=== PATIENT | male | born 1955 | race African-American/Black ===

== ENCOUNTER 2018-01-19 16:39 | Emergency (ER) | payer BC ==
[2018-01-19 16:45] VITALS: BMI 45.6
--- NOTE | 2018-01-19 17:13 | DR.EXTPAIN ---
HPI - Time seen Time seen: 17:00 - PCP Primary Care Physician: VERONIKA FARLEY - HPI Comment HPI Comment: INCREASING PAIN SINCE. - Complaint/Symptoms Chief Complaint Doctor Comments: INJURY LT WRIST TODAY AT [facility]. Chief Complaint:: PT C/O I WAS SHOUTING AT [employer] AND I HIT MY LEFT WRISTS ON SOMETHING AND IT HURTS,, Self Treatment fo Chief Complaint: PT C/O PAIN WHEN HE MOVES HIS WRIST.. - Nurses notes reviewed Nurses Notes Review: Yes - Source History Provided: Patient - Mode of arrival Mode of Arrival: Ambulatory - Timing Onset of Chief Complaint: 01/19/18 - Context History of: Arthritis - Associated signs and symptoms Associated Signs and Symptoms: Pain, Swelling, Bruising PMH - PMH Past Medical History: Yes Past Medical History: Hypertension Past Surgical History: Yes Surgical History: Other Past Surgical History Comment: HERNIA REPAIR. - Family History History of Family Medical Conditions: No Family Medical History: Diabetes Mellitus, [place], Coronary Artery Disease, Heart Failure - Social History Does patient currently use any type of tobacco product: No Have you used tobacco products in the last 12 months: No Type of Tobacco Use: None Does any household member use tobacco: No Alcohol Use: None Do you use any recreational Drugs:: No Lives With: Family Lives Where: Home - infectious screening In the last 2 months have you had wt loss of >10#?: NO Have you had fever, night sweats or hemotysis?: No Have you traveled outside the country in the last 6 months?: No Isolation: Standard ROS - Review of Systems Constitutional: No Symptoms Reported Eyes: No Symptoms Reported ENTM: No Symptoms Reported Respiratoy: No Symptoms Reported Cardiovascular: No Symptoms Reported Gastrointestinal/Abdominal: No Symptoms Reported Genitourinary: No Symptoms Reported Neurological: No Symptoms Reported Musculoskeletal: Left, Wrist Integumentary: No Symptoms Reported Hematologic/Lymphatic: No Symptoms Reported Endocrine: No Symptoms Reported All Other Systems: Reviewed and Negative PE - Vital Signs Vitals: Temperature 97.0 F Pulse Rate 96 Respiratory Rate 18 Blood Pressure [Right Arm] 180/82 Blood Pressure 190/88 O2 Sat by Pulse Oximetry 97 - General Limitations: No Limitations - Head Head Exam: Normal Inspection - ENT ENT Exam: Normal External Ear Exam - Neck Neck Exam: Trachea Midline - Chest Chest Inspection: Normal Inspection - Respiratory Respiratory Exam: Normal Lung Sounds Bilat Respiratory Exam: Bilateral Clear to Auscultation - Cardiovascular Cardiovascular Exam: Regular Rate - Abdominal Exam Abdominal Exam: Normal Inspection - Extremities Extremities Exam: Tenderness (LT WRIST SWOLLEN, BRUISED AND TENDER. CRYSTAL WITH PAIN.) - Lower Extremities Neurovascular/Tendon Exam: Normal Capillary Refill Gait Exam: Observed and Normal - Back Back Exam: Normal Inspection - Neurological Neurological Exam: Alert, Oriented X3 - Psychiatric Psychiatric Exam: Normal Affect, Normal Mood - Skin Skin Exam: Erythema MDM - Differential Diagnosis Differential Diagnosis: Contusion, Fracture, Sprain (LT WRIST.) Course - Treatment Treatment: SEE ORDERS. LT WRIST SPLIND PLACE IN ED. - Education/Counseling Education/Counseling: Patient, Education Educated On: Diagnosis, Needs for Follow Up ROR - XRAY XRAY Interpreted by: Radiologist XRAY Findings: REPORT DISCUSS WITH PATIENT. - Diagnosis Discharge Problem: Wrist sprain Qualifiers: Encounter type: initial encounter Laterality: left Qualified Code(s): S63.502A - Unspecified sprain of left wrist, initial encounter - Discharge Plan Disposition: 01 HOME, SELF-CARE Condition: Stable - Follow ups/Referrals Follow ups/Referrals: Kenzie BANDA [Primary Care Provider] - 3 days - Instructions Instructions: Wrist Splint, Adult, [id number], Wrist Sprain, Adult Additional Instructions: RETURN TO ED IF WORSE.
--- NOTE | 2018-01-19 18:38 | RAD ---
HISTORY: Wrist pain with motion Study: 3 views of the left wrist. Comparison: None Findings: No acute fractures or dislocations. The carpal bones appear well aligned. The visualized portions of the distal radius and ulna are unremarkable. No significant soft tissue abnormality. IMPRESSION: 1. No acute abnormalities of the left wrist. Please note that nondisplaced scaphoid fractures can be radio-occult in the acute phase. If there is persistent pain in the anatomic snuffbox, recommend x -ray followup in 1-2 weeks. Reported By:
[2018-01-19 18:55] VITALS: BP 180/82
== END 2018-01-19 18:54 | disposition home or self-care (01) ==
LOC: ER 16:47
DX: S63.502A Unspecified sprain of left wrist, initial encounter (principal); X58.XXXA Exposure to other specified factors, initial encounter; Y92.22 Religious institution as the place of occurrence of the external cause
CPT/HCPCS: 73100; 99282

== ENCOUNTER 2021-10-20 08:39 | Observation (INO) ==
--- NOTE | 2021-10-20 09:19 | DR.CP ---
HPI Time Seen Time Seen by Provider: 10/20/21 09:05 PCP Primary Care Physician: JUDY Complaint Chief Complaint Doctor Comments: PATIENT COMPLAIN OF LEFT CHEST PAIN THAT OCCURS WHEN HE HAS VISIONS OF SEEING PEOPLE. HE HAS NOT BEEN SLEEPING WELL FOR THE PAST 3-4 DAYS. HE STATES THAT HIS PAIN IS LESS NOW IN THE ER. HE HAS BEEN SEEN BY PSYCHIATRY BEFORE FOR HALLUCINATING BUT STATES THAT THEY WERE NOT DOING ANY GOOD SO HE STOPPED SEEING THEM. HE WAA ON MEDICATIONS BUT STATES THAT THEY WERE NOT WORKING. Chief Complaint:: LAST NIGHT FAMILY STATES PT WAS SEENING PEOPLE THAT WEREN'T THERE AND THEN HE COMPLAINED OF CHEST PAIN ABOUT 430 THIS MORING. FAMILY STATES HE HAS BEEN SEEING THINGS THAT AREN'T THERE FOR SEVERAL EVENING AND NOT SLEEPING AT ALL.FAMILY CONCERNED HE IS SCARED WHEN SEEING IMAGES AND PATIENT STATES HE IS AND THEN BEGAN HIS CHEST PAIN. Self Treatment fo Chief Complaint: MORINING MEDICATIONS Source History Provided: Patient and Family Member Mode of Arrival Mode of Arrival: Ambulatory Timing Onset of Chief Complaint: 10/20/21 PMH PMH Past Medical History: Yes Past Medical History: Dyslipidemia and Hypertension Past Medical History Comment: LEFT WRIST FX Past Surgical History: Yes Surgical History: Other Family History History of Family Medical Conditions: Yes Family Medical History: Cancer and Hypertension Social History Does patient currently use any type of tobacco product: No Have you used tobacco products in the last 12 months: No Type of Tobacco Use: None Does any household member use tobacco: No Alcohol Use: None Do you use any recreational Drugs:: No Lives With: Spouse and Family Lives Where: Home Infectious screening In the last 2 months have you had wt loss of >10#?: NO Have you had fever, night sweats or hemotysis?: No Have you traveled outside the country in the last 6 months?: No Isolation: Standard ROS Review of Systems Constitutional: No Symptoms Reported Eyes: No Symptoms Reported and Other (LEGALLY BLIND) ENTM: No Symptoms Reported Respiratoy: No Symptoms Reported Cardiovascular: No Symptoms Reported and Chest Pain (CHEST PAIN AFTER JASON LUCINATIONS AND DELUSIONS) Gastrointestinal/Abdominal: No Symptoms Reported Genitourinary: No Symptoms Reported Neurological: No Symptoms Reported Musculoskeletal: No Symptoms Reported Integumentary: No Symptoms Reported Hematologic/Lymphatic: No Symptoms Reported Endocrine: No Symptoms Reported Psychiatric: No Symptoms Reported All Other Systems: Reviewed and Negative PE Vitals Vitals: Temperature 97.0 F Pulse Rate 96 Respiratory Rate 39 Blood Pressure [Right Arm] 132/80 Blood Pressure 116/82 O2 Sat by Pulse Oximetry 99 General Limitations: No Limitations General Appearance: Alert and In No Apparent Distress Head Head Exam: Normal Inspection Eyes Eye exam: Other (LEGALLY BLIND) ENT ENT Exam: Normal Exam Chest Chest Inspection: Normal Inspection Respiratory Respiratory Exam: Normal Lung Sounds Bilat Cardiovascular Cardiovascular Exam: Normal Rhythm and Tachycardia Pulse: Normal Edema: Normal Abdominal Exam Abdominal Exam: Normal Inspection, Normal Bowel Sounds and Soft Extremities Extremities Exam: Normal Inspection Back Back Exam: Normal Inspection Neurologic Neurological Exam: Alert and Oriented X3 Psychiatric Psychiatric Exam: Normal Affect and Normal Mood Skin Skin Exam: Warm, Dry, Intact and Normal Color MDM Additional Information Findings: TACHYCARDIA,CHEST PAIN,HALLUCINATIONS,PANIC ATTACK Differential Diagnosis Differential Diagnosis: Angina COURSE Treatment Treatment: PATIENT REMAINED STABLE DURING ER EVALUATION. HE WAS ORIGINALLY IN AFIB WITH RVR WITH RATE OF 139 BUT HE LATER CONVERTED TO NSR WITH RATE OF 90. PATIENT WAS GIVEN ASA 325 MG ORALLY IN ER AND STATED THAT HIS PAIN WAS ABOUT 2-3 UPON ARRIVAL TO ER. WE DID CARDIAC ENZYMES THAT WERE ELEVATED AT 96.6 (4-60). GOT THE RECORDS FROM [facility] IN [place] AND THE PATIEN HAD SIMULAR ELEVATION IN ENZYMES BUT HE HAD AFIB WITH RVR AND HAD ABLATION DONE ON 10-04-21. HE WAS SENT HOME ON AMIODORONE AND ELIQUIS AND WE WERE UNSURE IF HE HAS BEE COMPLIANT WITH HIS MEDICATIONS. CONTACT WAS MADE WITH HIS PCP DR ALMENDAREZ AND HE STATED TO REPEAT CARDIAC ENZYMES AND IF NO CHANGE OR IF DECREASED CAN REFER TO OBSERVATION FOR CHEST PAIN. WE REPEATED THE ENZYMES AND THEY WERE UNCHANGED SO HE WAS CALLED BACK WITH THE RESULTS AND HE ACCEPTED THE PATIENT TO OBSERVATION FOR CHEST PAIN. THE PATIENT WAS GIVEN XANAX 0.5 MG ORALLY IN THE ER AND HIS ANXIETY SUBSIDED. ROR Labs Reviewed Laboratory Results Reviewed?: Yes Result Diagrams: 10/21/21 04:50 10/21/21 04:50 Laboratory: WBC 6.0 X10^3/uL (3.6-10.0) 10/20/21 09:16 RBC 3.96 X10^6/uL (4.7-6.0) L 10/20/21 09:16 Hgb 11.8 g/dL (13.5-18.0) L 10/20/21 09:16 Hct 35.3 % (42.0-54.0) L 10/20/21 09:16 MCV 89.0 fL (80.0-100.0) 10/20/21 09:16 MCH 29.7 pg (27.0-34.0) 10/20/21 09:16 MCHC 33.4 g/dL (33.0-35.0) 10/20/21 09:16 RDW 15.5 % (11.6-16.5) 10/20/21 09:16 Plt Count 211 X10^3/uL (150.0-450.0) 10/20/21 09:16 MPV 9.1 fL (7.4-11.0) 10/20/21 09:16 Neut % (Auto) 68.3 % (42.0-75.0) 10/20/21 09:16 Lymph % (Auto) 21.7 % (21.0-51.0) 10/20/21 09:16 [place] % (Auto) 9.2 % (0.0-13.0) 10/20/21 09:16 Eos % (Auto) 0.4 % (0.9-2.9) L 10/20/21 09:16 Baso % (Auto) 0.4 % (0.2-1.0) 10/20/21 09:16 Neut # (Auto) 4.1 x10^3/uL (2.2-4.8) 10/20/21 09:16 Lymph # (Auto) 1.3 X10^3/uL (1.3-2.9) 10/20/21 09:16 [place] # (Auto) 0.6 x10^3/uL (0.3-0.8) 10/20/21 09:16 Eos # (Auto) 0.0 x10^3/uL (0.0-0.2) 10/20/21 09:16 Baso # (Auto) 0.0 X10^3/uL (0.0-0.1) 10/20/21 09:16 Absolute Nucleated RBC 0.0 /100WBC 10/20/21 09:16 PT 14.2 SECONDS (11.8-14.3) 10/20/21 09:16 INR Target Range - 10/20/21 09:16 INR 1.15 (0.8-1.3) 10/20/21 09:16 APTT 31.7 SECONDS (22.9-36.5) 10/20/21 09:16 PTT Comment - 10/20/21 09:16 Sodium 145 mmol/L (136-145) 10/20/21 09:16 Corrected Sodium TNP 10/20/21 09:16 Potassium 3.6 mmol/L (3.5-5.1) 10/20/21 09:16 Chloride 109 mmol/L (98-107) H 10/20/21 09:16 Carbon Dioxide 26.4 mmol/L (21-32) 10/20/21 09:16 BUN 18 mg/dL (7-18) 10/20/21 09:16 Creatinine 1.46 mg/dL (0.70-1.30) H 10/20/21 09:16 Est GFR (MDRD) Af Amer > 60 (>60) 10/20/21 09:16 Est GFR (MDRD) Non-Af 51 (>60) L 10/20/21 09:16 Glucose 109 mg/dL (65-99) H 10/20/21 09:16 Calcium 8.6 mg/dL (8.5-10.1) 10/20/21 09:16 Corrected Calcium TNP 10/20/21 09:16 Total Bilirubin 0.20 mg/dL (0.2-1.0) 10/20/21 09:16 AST 14 Units/L (15-37) L 10/20/21 09:16 ALT 26 Units/L (12-78) 10/20/21 09:16 Alkaline Phosphatase 57 Units/L (46-116) 10/20/21 09:16 Creatine Kinase 83 Units/L (39-308) 10/20/21 12:10 CK-MB (CK-2) 1.1 ng/mL (0-4.0) 10/20/21 12:10 CK/CKMB % Calc 1.3 % (<4) 10/20/21 12:10 Troponin I High Sens 96.7 ng/L (4.0-60.0) H* 10/20/21 12:10 B-Natriuretic Peptide 38.9 pg/mL (0-79) 10/20/21 09:16 Total Protein 7.8 g/dL (6.4-8.2) 10/20/21 09:16 Albumin 3.5 g/dL (3.4-5.0) 10/20/21 09:16 Globulin 4.3 g/dL (2.5-4.5) 10/20/21 09:16 Albumin/Globulin Ratio 0.8 Ratio (1.1-2.1) L 10/20/21 09:16 Specimen Type Clean catch urine 10/20/21 09:35 Urine Color Yellow (YELLOW) 10/20/21 09:35 Urine Appearance Clear (CLEAR) 10/20/21 09:35 Urine pH 7.0 (5.0 - 8.0) 10/20/21 09:35 Ur Specific Mom[place] 1.010 (1.000-1.030) 10/20/21 09:35 Urine Protein Negative (NEGATIVE) 10/20/21 09:35 Urine Glucose (UA) Negative (NEGATIVE) 10/20/21 09:35 Urine Ketones Negative (NEGATIVE) 10/20/21 09:35 Urine Occult Blood Negative (NEGATIVE) 10/20/21 09:35 Urine Nitrite Negative (NEGATIVE) 10/20/21 09:35 Urine Bilirubin Negative (NEGATIVE) 10/20/21 09:35 Urine Urobilinogen Normal (NORMAL) 10/20/21 09:35 Ur Leukocyte Esterase Negative (NEGATIVE) 10/20/21 09:35 SARS CoV-2 RNA Rapid [place] Negative (NEGATIVE) 10/20/21 12:48 XRAY XRAY Interpreted by: Radiologist (CHEST XRAY NO ACUTE INTRATHORACIC ABNORMALITY.) EKG Rhythm: Afib (INITIAL AFIB WITH RVR THAT CONVERTED TO NSR WITH RATE OF 90.) Opioid Opioid Risk Tool Age (Ez box if 16-45): No History of Preadolescent Sexual Abuse: No Total: 0 Total Score Risk Category: Low Risk Copyright: Brian BARNES predicting aberrant behaviors Instructions Forms: Excuse From Work or School Precautions for COVID19 [facility] Social Distancing
[2021-10-20] MEDS ORDERED: ASPIRIN PO ONE (09:23)
[2021-10-20] MEDS ORDERED: ASPIRIN ONE (09:26)
[2021-10-20 09:33] LABS: BASOPHILS % (AUTO) 0.4 % (0.2-1.0); EOSINOPHILS % (AUTO) 0.4 % (0.9-2.9); HEMATOCRIT 35.3 % (42.0-54.0); HEMOGLOBIN 11.8 g/dL (13.5-18.0); LYMPHOCYTES # (AUTO) 1.3 X10^3/uL (1.3-2.9); LYMPHOCYTES % (AUTO) 21.7 % (21.0-51.0); MEAN CORPUSCULAR HEMOGLOBIN 29.7 pg (27.0-34.0); MEAN CORPUSCULAR HGB CONC 33.4 g/dL (33.0-35.0); MEAN PLATELET VOLUME 9.1 fL (7.4-11.0); MONOCYTES # (AUTO) 0.6 x10^3/uL (0.3-0.8); MONOCYTES % (AUTO) 9.2 % (0.0-13.0); NEUTROPHILS # (AUTO) 4.1 x10^3/uL (2.2-4.8); NEUTROPHILS % (AUTO) 68.3 % (42.0-75.0); RED BLOOD COUNT 3.96 X10^6/uL (4.7-6.0); RED CELL DISTRIBUTION WIDTH 15.5 % (11.6-16.5)
[2021-10-20 09:46] LABS: BILIRUBIN,URINE NEGATIVE (NEGATIVE); BLOOD/HEMOGLOBIN,URINE NEGATIVE (NEGATIVE); GLUCOSE, URINE NEGATIVE (NEGATIVE); KETONES,URINE NEGATIVE (NEGATIVE); LEUKOCYTE ESTERASE ,URINE NEGATIVE (NEGATIVE); NITRITES,URINE NEGATIVE (NEGATIVE); PROTEIN,URINE NEGATIVE (NEGATIVE); UROBILINOGEN,URINE NORMAL (NORMAL)
--- NOTE | 2021-10-20 09:47 | RAD ---
HISTORYAMS, CHEST WALL PAINSTUDYCHEST, 1 [id number] cardiomediastinal silhouette is widened but stable. The lungs are clear without evidence of airspace disease or effusion. No pneumothorax. The bony thorax appears intact.IMPRESSIONSimilar cardiomegaly without acute cardiopulmonary disease.Electronically signed by: DASIA KHOURY (Oct 20, 2021 09:45:44)
[2021-10-20 09:48] LABS: APPEARANCE,URINE CLEAR (CLEAR); COLOR,URINE YELLOW (YELLOW)
[2021-10-20 09:56] LABS: ALANINE AMINOTRANSFERASE 26 Units/L (12-78); ALBUMIN 3.5 g/dL (3.4-5.0); ALKALINE PHOSPHATASE 57 Units/L (46-116); ASPARTATE AMINO TRANSFERASE 14 Units/L (15-37); BLOOD UREA NITROGEN 18 mg/dL (7-18); CALCIUM 8.6 mg/dL (8.5-10.1); CARBON DIOXIDE 26.4 mmol/L (21-32); CHLORIDE 109 mmol/L (98-107); CKMB % 1.2 % (<4); CREATINE KINASE 82 Units/L (39-308); CREATININE 1.46 mg/dL (0.70-1.30); SODIUM 145 mmol/L (136-145); TOTAL PROTEIN 7.8 g/dL (6.4-8.2); eGFR NON BLACK RACES 51 (>60)
[2021-10-20 12:42] LABS: CKMB % 1.3 % (<4); CREATINE KINASE MB 1.1 ng/mL (0-4.0)
[2021-10-20] MEDS ORDERED: XANAX ONE (14:36)
[2021-10-20] MEDS ORDERED: XANAX PO ONE (14:40)
[2021-10-20] MEDS ORDERED: PATIENT'S HOME MEDICATION (Alprazolam 0.5 mg tablet) PO PRN (17:23)
[2021-10-20] MEDS ORDERED: NEURONTIN CAP 100 MG PO PRN (17:23)
[2021-10-20] MEDS ORDERED: XALATAN OP SCH ×2 (17:23→21:00)
[2021-10-20] MEDS ORDERED: PATIENT'S HOME MEDICATION (Oxycodone-Acetaminophen 10-325 mg Tablet) PO PRN (17:23)
[2021-10-20] MEDS ORDERED: XANAX PO PRN (17:49)
[2021-10-20] MEDS ORDERED: PERCOCET TAB 5/325 MG PO PRN (17:51)
[2021-10-20] MEDS ORDERED: ROXICODONE TAB 5 MG PO PRN (17:52)
[2021-10-20 18:05] VITALS: BMI 37.2
[2021-10-20] MEDS ORDERED: COZAAR PO SCH (21:00)
[2021-10-20] MEDS ORDERED: AMBIEN PO SCH (21:00)
[2021-10-20] MEDS ORDERED: ZOCOR TAB 20 MG PO SCH (21:00)
[2021-10-20] MEDS ORDERED: NEURONTIN CAP 100 MG PO SCH (21:00)
[2021-10-20] MEDS: ALPHAGAN 0.2% OPHTH SOLN OP SCH (21:47)
[2021-10-20] MEDS: PEPCID TAB 20 MG PO SCH (21:48)
[2021-10-20] MEDS: APRESOLINE TAB 25 MG PO SCH (21:48)
[2021-10-20] MEDS: CORDARONE TAB 200 MG PO SCH (21:50)
[2021-10-20] MEDS: ELIQUIS PO SCH (21:52)
[2021-10-20] MEDS: COSOPT OPTH OP SCH (21:53)
[2021-10-21 05:26] LABS: BASOPHILS % (AUTO) 0.5 % (0.2-1.0); EOSINOPHILS # (AUTO) 0.1 x10^3/uL (0.0-0.2); EOSINOPHILS % (AUTO) 1.5 % (0.9-2.9); HEMOGLOBIN 11.1 g/dL (13.5-18.0); LYMPHOCYTES # (AUTO) 1.3 X10^3/uL (1.3-2.9); LYMPHOCYTES % (AUTO) 26.5 % (21.0-51.0); MEAN CORPUSCULAR HEMOGLOBIN 29.4 pg (27.0-34.0); MEAN CORPUSCULAR HGB CONC 32.8 g/dL (33.0-35.0); MEAN CORPUSCULAR VOLUME 89.5 fL (80.0-100.0); MEAN PLATELET VOLUME 9.2 fL (7.4-11.0); MONOCYTES # (AUTO) 0.4 x10^3/uL (0.3-0.8); NEUTROPHILS # (AUTO) 3.2 x10^3/uL (2.2-4.8); NEUTROPHILS % (AUTO) 63.5 % (42.0-75.0); RED BLOOD COUNT 3.79 X10^6/uL (4.7-6.0); RED CELL DISTRIBUTION WIDTH 15.6 % (11.6-16.5); WHITE BLOOD COUNT 5.1 X10^3/uL (3.6-10.0)
[2021-10-21 05:47] LABS: ALANINE AMINOTRANSFERASE 20 Units/L (12-78); ALBUMIN 2.9 g/dL (3.4-5.0); ALKALINE PHOSPHATASE 50 Units/L (46-116); ASPARTATE AMINO TRANSFERASE 13 Units/L (15-37); BLOOD UREA NITROGEN 15 mg/dL (7-18); CALCIUM 8.4 mg/dL (8.5-10.1); CARBON DIOXIDE 27.5 mmol/L (21-32); CHLORIDE 112 mmol/L (98-107); CKMB % 1.5 % (<4); COR CA(FOR HYPOALB) 9.3 mg/dL (8.5-10.1); CREATINE KINASE 66 Units/L (39-308); CREATINE KINASE MB < 1.0 ng/mL (0-4.0); CREATININE 1.35 mg/dL (0.70-1.30); SODIUM 147 mmol/L (136-145); TOTAL PROTEIN 6.8 g/dL (6.4-8.2); eGFR NON BLACK RACES 56 (>60)
[2021-10-21] MEDS ORDERED: ZESTRIL TAB 20 MG ONE (08:10)
[2021-10-21] MEDS ORDERED: ZESTRIL TAB 20 MG PO SCH (09:00)
[2021-10-21] MEDS ORDERED: EFFEXOR XR 75 MG CAP 24-HR PO SCH (09:00)
[2021-10-21] MEDS ORDERED: PATIENT'S HOME MEDICATION (Lisinopril-Hydrochlorothiazide 20-12.5 mg tablet) PO SCH (09:00)
[2021-10-21] MEDS ORDERED: NORVASC TAB 10 MG PO SCH (09:00)
[2021-10-21] MEDS ORDERED: HYDROCHLOROTHIAZIDE 12.5 MG CAP PO SCH (09:00)
[2021-10-21 09:03] VITALS: BP 132/80
[2021-10-21] MEDS: PEPCID TAB 20 MG PO SCH (09:03)
[2021-10-21] MEDS: CORDARONE TAB 200 MG PO SCH (09:03)
[2021-10-21] MEDS: APRESOLINE TAB 25 MG PO SCH (09:03)
[2021-10-21] MEDS: ELIQUIS PO SCH (09:04)
[2021-10-21] MEDS: ALPHAGAN 0.2% OPHTH SOLN OP SCH (09:08)
[2021-10-21] MEDS: COSOPT OPTH OP SCH (09:09)
--- NOTE | 2021-10-21 10:40 | DR.SSS ---
SHORT STAY SUMMARY Admission Date Date of Admission: 10/20/21 Discharge Date Discharge Date: 10/21/21 Admission Diagnoses Admission Diagnoses: Chest pain Discharge Diagnoses Discharge Diagnoses: Chest pain ruled out Chief Complaint Chief Complaint: Chest pain History of Present Illness History of Present Illness: Pt is a 66 year old male past medical history Hypertension, Legally blind, CKD, presenting with chest pain that started yesterday. He reports feeling agitated and was "seeing things" that upset him. After that he reported feeling midsternal chest pain that was persisting. Denies diaphoresis or radiation of pain, nausea, vomiting, shortness of breath. Past Medical History Past Medical History: Dyslipidemia and Hypertension Past Surgical History Surgical History: Other Allergies Allergies Allergy/AdvReac Type Severity Reaction Status Date / Time codeine Allergy Verified 01/01/21 16:54 Medications Home Medications: codeine Allergy (Verified 01/01/21 16:54) CONTINUE taking the following medications brimonidine 1 drp OPHTHALMIC (EYE) BID 10/20/21 [History] hydralazine 50 mg PO BID 10/20/21 [History] losartan 25 mg PO BID 10/20/21 [History] metoprolol tartrate 25 mg PO DAILY 10/20/21 [History] New Prescriptions Eliquis 5 mg PO BID 30 Days #60 tab 10/21/21 [Rx] amiodarone 200 mg PO BID 30 Days #60 tab 10/21/21 [Rx] Family History Family Medical History: Cancer, [place] and Hypertension Social History Does patient currently use any type of tobacco product: No Have you used tobacco products in the last 12 months: No Type of Tobacco Use: None Does any household member use tobacco: No Alcohol Use: None Drug Use: None Review of Systems Constitutional: No Symptoms Reported ENT: No Symptoms Reported Respiratory: No Symptoms Reported Cardiovascular: Chest Pain Gastrointestinal: No Symptoms Reported Genitourinary: No Symptoms Reported Musculoskeletal: No Symptoms Reported Skin: No Symptoms Reported Neurological: No Symptoms Reported Physical Exam Vital Signs: Last Vital Signs Temp 97.8 F 10/21/21 08:00 Pulse 88 10/21/21 08:00 Resp 20 10/21/21 08:00 BP 132/80 10/21/21 08:00 Pulse Ox 98 10/21/21 08:00 Oriented: Normal Ear: Normal Nose: Normal Throat: Normal Respiratory: Clear Throughout Cardiovascular: Normal : Normal Auscultation: Bowel Sounds: Normal Palpation: Normal Tenderness: Normal Skin: Normal Musculoskeletal: Normal Psychiatric: Normal Mood Description: Calm Speech Pattern: Clear Labs Labs: Laboratory Last Values WBC 5.1 X10^3/uL (3.6-10.0) 10/21/21 04:50 RBC 3.79 X10^6/uL (4.7-6.0) L 10/21/21 04:50 Hgb 11.1 g/dL (13.5-18.0) L 10/21/21 04:50 Hct 34.0 % (42.0-54.0) L 10/21/21 04:50 MCV 89.5 fL (80.0-100.0) 10/21/21 04:50 MCH 29.4 pg (27.0-34.0) 10/21/21 04:50 MCHC 32.8 g/dL (33.0-35.0) L 10/21/21 04:50 RDW 15.6 % (11.6-16.5) 10/21/21 04:50 Plt Count 196 X10^3/uL (150.0-450.0) 10/21/21 04:50 MPV 9.2 fL (7.4-11.0) 10/21/21 04:50 Neut % (Auto) 63.5 % (42.0-75.0) 10/21/21 04:50 Lymph % (Auto) 26.5 % (21.0-51.0) 10/21/21 04:50 [place] % (Auto) 8.0 % (0.0-13.0) 10/21/21 04:50 Eos % (Auto) 1.5 % (0.9-2.9) 10/21/21 04:50 Baso % (Auto) 0.5 % (0.2-1.0) 10/21/21 04:50 Neut # (Auto) 3.2 x10^3/uL (2.2-4.8) 10/21/21 04:50 Lymph # (Auto) 1.3 X10^3/uL (1.3-2.9) 10/21/21 04:50 [place] # (Auto) 0.4 x10^3/uL (0.3-0.8) 10/21/21 04:50 Eos # (Auto) 0.1 x10^3/uL (0.0-0.2) 10/21/21 04:50 Baso # (Auto) 0.0 X10^3/uL (0.0-0.1) 10/21/21 04:50 Absolute Nucleated RBC 0.1 /100WBC 10/21/21 04:50 PT 14.2 SECONDS (11.8-14.3) 10/20/21 09:16 INR Target Range - 10/20/21 09:16 INR 1.15 (0.8-1.3) 10/20/21 09:16 APTT 31.7 SECONDS (22.9-36.5) 10/20/21 09:16 PTT Comment - 10/20/21 09:16 Sodium 147 mmol/L (136-145) H 10/21/21 04:50 Corrected Sodium TNP 10/21/21 04:50 Potassium 4.1 mmol/L (3.5-5.1) 10/21/21 04:50 Chloride 112 mmol/L (98-107) H 10/21/21 04:50 Carbon Dioxide 27.5 mmol/L (21-32) 10/21/21 04:50 BUN 15 mg/dL (7-18) 10/21/21 04:50 Creatinine 1.35 mg/dL (0.70-1.30) H 10/21/21 04:50 Est GFR (MDRD) Af Amer > 60 (>60) 10/21/21 04:50 Est GFR (MDRD) Non-Af 56 (>60) L 10/21/21 04:50 Glucose 91 mg/dL (65-99) 10/21/21 04:50 Calcium 8.4 mg/dL (8.5-10.1) L 10/21/21 04:50 Corrected Calcium 9.3 mg/dL (8.5-10.1) 10/21/21 04:50 Total Bilirubin 0.20 mg/dL (0.2-1.0) 10/21/21 04:50 AST 13 Units/L (15-37) L 10/21/21 04:50 ALT 20 Units/L (12-78) 10/21/21 04:50 Alkaline Phosphatase 50 Units/L (46-116) 10/21/21 04:50 Creatine Kinase 66 Units/L (39-308) 10/21/21 04:50 CK-MB (CK-2) < 1.0 ng/mL (0-4.0) 10/21/21 04:50 CK/CKMB % Calc 1.5 % (<4) 10/21/21 04:50 Troponin I High Sens 88.4 ng/L (4.0-60.0) H* 10/21/21 04:50 B-Natriuretic Peptide 38.9 pg/mL (0-79) 10/20/21 09:16 Total Protein 6.8 g/dL (6.4-8.2) 10/21/21 04:50 Albumin 2.9 g/dL (3.4-5.0) L 10/21/21 04:50 Globulin 3.9 g/dL (2.5-4.5) 10/21/21 04:50 Albumin/Globulin Ratio 0.7 Ratio (1.1-2.1) L 10/21/21 04:50 Specimen Type Clean catch urine 10/20/21 09:35 Urine Color Yellow (YELLOW) 10/20/21 09:35 Urine Appearance Clear (CLEAR) 10/20/21 09:35 Urine pH 7.0 (5.0 - 8.0) 10/20/21 09:35 Ur Specific [place] 1.010 (1.000-1.030) 10/20/21 09:35 Urine Protein Negative (NEGATIVE) 10/20/21 09:35 Urine Glucose (UA) Negative (NEGATIVE) 10/20/21 09:35 Urine Ketones Negative (NEGATIVE) 10/20/21 09:35 Urine Occult Blood Negative (NEGATIVE) 10/20/21 09:35 Urine Nitrite Negative (NEGATIVE) 10/20/21 09:35 Urine Bilirubin Negative (NEGATIVE) 10/20/21 09:35 Urine Urobilinogen Normal (NORMAL) 10/20/21 09:35 Ur Leukocyte Esterase Negative (NEGATIVE) 10/20/21 09:35 SARS CoV-2 RNA Rapid [place] Negative (NEGATIVE) 10/20/21 12:48 Assessment/Plan (1) Chest pain: Hospital Course Hospital Course: Pt was admitted for observation and chest pain rule out, placed on telemetry. It was determined that he was recently discharged from [facility] after having cardiac ablation for atrial fibrillation and was started on medications that he was not aware of needing to take. Amiodarone and Eliquis restarted in hospital. Ekg no STEMI, Cardiac enzymes mildly elevated but same as prior hospital visit and trending down. UA negative, CXR no acute cardiopulmonary abnormality. Pt did well overnight and chest pain resolved. Will start patient also on seroquel at night to help with sleep and visual hallucinations that may be due in part to blindness. Will need referral to cardiology outpatinet. Pt was discharged in stable condition, instructed to follow up with pcp in 3-5 days. Discharge Medications Discharge Medications: Home Medication List brimonidine 1 drp OPHTHALMIC (EYE) BID 10/20/21 [History] hydralazine 50 mg PO BID 10/20/21 [History] losartan 25 mg PO BID 10/20/21 [History] metoprolol tartrate 25 mg PO DAILY 10/20/21 [History] Eliquis 5 mg PO BID 30 Days #60 tab 10/21/21 [Rx] amiodarone 200 mg PO BID 30 Days #60 tab 10/21/21 [Rx] Prescriptions: amiodarone Felipe Cloud Eliquis Felipe Cloud Discharge Disposition Discharge Disposition: Home
== END 2021-10-21 11:58 | disposition home or self-care (01) ==
LOC: MED/SURG 08:39 → ER 08:39 → MED/SURG 16:10
PROVIDERS: ADMIT Family Medicine; ATTEND Family Medicine
DX: R77.8 Other specified abnormalities of plasma proteins; I12.9 Hypertensive chronic kidney disease with stage 1 through stage 4 chronic kidney disease, or unspecified chronic kidney disease; I48.91 Unspecified atrial fibrillation; N18.9 Chronic kidney disease, unspecified; E78.2 Mixed hyperlipidemia; R44.1 Visual hallucinations; R94.31 Abnormal electrocardiogram [ECG] [EKG]; H54.8 Legal blindness, as defined in USA; R07.89 Other chest pain; R79.1 Abnormal coagulation profile; Z20.822 Contact with and (suspected) exposure to COVID-19

== ENCOUNTER 2021-12-26 00:09 | Observation (INO) ==
--- NOTE | 2021-12-26 00:21 | DR.SOBA ---
HPI Time Seen Time Seen by Provider: 12/26/21 00:19 HPI Comment HPI Comment: PATIENT IS 66YR OLD MALE IN ER VIA EMS WITH SOB, NAUSEA AND FEELING ANXIOUS. PATIENT SAID HE WAS UNABLE TO SLEEP AND WAS HAVING HALLUCINATIONS. RELATIVES CALL EMS. HE SAID HE HAVE THESE HALLUCINATIONS AT NIGHT THAT CAUSE HIM NOT TO SLEEP. DENIES TRAUMA. HAVE HISTORY OF SLEEP WALKING BUT DID NOT SLEEP WALK TONIGHT. HE HAS HISTORY OF HYPERTENSION. Complaints Chief Complaint Doctors Comments: SOB, NAUSEA AND FEELING ANXIOUS. COVID-19 Coronavirus risk:travel/contact w/high risk person: No Has patient experienced Coronavirus symptoms: No Reviewed Nurses Notes Reviewed: Yes Source History Provided: Patient and EMS Mode of Arrival Mode of Arrival: EMS Duration Onset: a.m. Duration: Unknown Context Onset:: At Rest PE Risk Factors:: None History of:: None Modifying Factors Worsens:: Nothing PMH PMH Past Medical History: Dyslipidemia and Hypertension Past Surgical History: Yes Surgical History: Other Family History Family Medical History: Cancer, MD and Hypertension Social History Do you use any recreational Drugs:: No ROS Review of Systems Constitutional: See HPI, Weakness and Fatigue; negative Fever Eyes: See HPI and Other (LIGALLY BLIND.) ENTM: No Symptoms Reported and See HPI; negative Nose Discharge and Nose Congestion Respiratoy: See HPI and Short of Breath (ON EXERTION.); negative Moist Cough and Wheezing Cardiovascular: No Symptoms Reported and See HPI; negative Chest Pain Gastrointestinal/Abdominal: No Symptoms Reported and See HPI; negative Abdominal Pain, Diarrhea and Vomiting Genitourinary: See HPI and Other; negative Dysuria Neurological: See HPI and Weakness; negative Headache and Dizziness Musculoskeletal: See HPI and Back Pain; negative No Symptoms Reported Integumentary: No Symptoms Reported and See HPI; negative Rash and Juandice Hematologic/Lymphatic: See HPI, Easy Bleeding and Easy Bruising Endocrine: No Symptoms Reported and See HPI; negative Increased Thirst and Increased Urine Psychiatric: No Symptoms Reported and See HPI All Other Systems: Reviewed and Negative PE Vital Signs Vitals: Temperature 98.3 F Pulse Rate 78 Respiratory Rate 16 Blood Pressure [Right Arm] 132/80 Blood Pressure 134/73 O2 Sat by Pulse Oximetry 99 General Limitations: No Limitations General Appearance: Alert and In No Apparent Distress Head Head Exam: Normal Inspection and Atraumatic Eyes Eye exam: Other (PATIENT LIGALLY BLIND.); negative Scleral Icterus and Conjunctival Injection ENT ENT Exam: Normal Exam, Normal Oropharynx, Normal External Ear Exam and TM's Normal Bilaterally Neck Neck Exam: Normal Inspection and Trachea Midline; negative Tenderness Chest Chest Inspection: Normal Inspection and Symmetric Chest Wall Rise; negative Tenderness Respiratory Respiratory Exam: Normal Lung Sounds Bilat; negative Accessory Muscle Use, Chest Wall Tenderness and Respiratory Distress Respiratory Exam: Bilateral: Rhonchi and Lower: Rhonchi Cardiovascular Cardiovascular Exam: Regular Rate, Normal Rhythm and Normal Heart Sounds; negative Systolic Murmur and Diastolic Murmur Abdominal Exam Abdominal Exam: Normal Inspection, Normal Bowel Sounds and Soft; negative Tenderness Extremities Extremities Exam: Normal Capillary Refill Back Back Exam: Normal Inspection; negative (R) CVA Tenderness and (L) CVA Tenderness Neurologic Neurological Exam: Alert; negative Motor Sensory Deficit Psychiatric Psychiatric Exam: Normal Affect and Normal Mood Skin Skin Exam: Dry MDM Additional Information Obtained Additional Information Obtained From: Old Records and Family Differential Diagnosis Differential Diagnosis: Anxiety, Bronchitis, CHF, Hyponatremia, Mycardial Infarction, Pneumonia, Pneumothorax, Respiratory Insufficiency, URI and Other (HALLUCINATIONS.) COURSE Treatment Treatment: SEE ORDERS DONE WHILE PATIENT IN ER. NS 75CC/H5 WAS STARTED IN ER. LABS AND XRAY AND EKG REPORTS DISCUSSED WITH PATIENT AND HIS . HE IS ADMITTED FOR FURTHER EVALUATION FOR ABNORMAL TROPONIN AND TREAMENT FOR DEHYDRATION. Education/Counseling Education/Counseling: Patient and Family Educated On: Diagnosis ROR Labs Reviewed Laboratory Results Reviewed?: Yes Result Diagrams: 12/27/21 04:40 12/27/21 04:40 Laboratory: WBC 5.7 X10^3/uL (3.6-10.0) 12/26/21 00:36 RBC 3.69 X10^6/uL (4.7-6.0) L 12/26/21 00:36 Hgb 11.1 g/dL (13.5-18.0) L 12/26/21 00:36 Hct 33.0 % (42.0-54.0) L 12/26/21 00:36 MCV 89.5 fL (80.0-100.0) 12/26/21 00:36 MCH 30.0 pg (27.0-34.0) 12/26/21 00:36 MCHC 33.6 g/dL (33.0-35.0) 12/26/21 00:36 RDW 14.4 % (11.6-16.5) 12/26/21 00:36 Plt Count 167 X10^3/uL (150.0-450.0) 12/26/21 00:36 MPV 8.6 fL (7.4-11.0) 12/26/21 00:36 Neut % (Auto) 58.3 % (42.0-75.0) 12/26/21 00:36 Lymph % (Auto) 30.6 % (21.0-51.0) 12/26/21 00:36 [place] % (Auto) 10.0 % (0.0-13.0) 12/26/21 00:36 Eos % (Auto) 0.7 % (0.9-2.9) L 12/26/21 00:36 Baso % (Auto) 0.4 % (0.2-1.0) 12/26/21 00:36 Neut # (Auto) 3.3 x10^3/uL (2.2-4.8) 12/26/21 00:36 Lymph # (Auto) 1.8 X10^3/uL (1.3-2.9) 12/26/21 00:36 [place] # (Auto) 0.6 x10^3/uL (0.3-0.8) 12/26/21 00:36 Eos # (Auto) 0.0 x10^3/uL (0.0-0.2) 12/26/21 00:36 Baso # (Auto) 0.0 X10^3/uL (0.0-0.1) 12/26/21 00:36 Absolute Nucleated RBC 0.1 /100WBC 12/26/21 00:36 Sodium 141 mmol/L (136-145) 12/26/21 00:36 Corrected Sodium 142 mmol/L (136-145) 12/26/21 00:36 Potassium 3.6 mmol/L (3.5-5.1) 12/26/21 00:36 Chloride 107 mmol/L (98-107) 12/26/21 00:36 Carbon Dioxide 26.1 mmol/L (21-32) 12/26/21 00:36 BUN 25 mg/dL (7-18) H 12/26/21 00:36 Creatinine 1.57 mg/dL (0.70-1.30) H 12/26/21 00:36 Est GFR (MDRD) Af Amer 57 (>60) L 12/26/21 00:36 Est GFR (MDRD) Non-Af 47 (>60) L 12/26/21 00:36 Glucose 149 mg/dL (65-99) H 12/26/21 00:36 Calcium 8.6 mg/dL (8.5-10.1) 12/26/21 00:36 Corrected Calcium 9.2 mg/dL (8.5-10.1) 12/26/21 00:36 Magnesium 2.3 mg/dL (1.7-2.9) 12/26/21 02:36 Total Bilirubin 0.10 mg/dL (0.2-1.0) L 12/26/21 00:36 AST 19 Units/L (15-37) 12/26/21 00:36 ALT 39 Units/L (12-78) 12/26/21 00:36 Alkaline Phosphatase 59 Units/L (46-116) 12/26/21 00:36 Creatine Kinase 61 Units/L (39-308) 12/26/21 02:36 CK-MB (CK-2) < 1.0 ng/mL (0-4.0) 12/26/21 02:36 CK/CKMB % Calc 1.6 % (<4) 12/26/21 02:36 Troponin I High Sens 62.9 ng/L (4.0-60.0) H* 12/26/21 02:36 Total Protein 7.4 g/dL (6.4-8.2) 12/26/21 00:36 Albumin 3.3 g/dL (3.4-5.0) L 12/26/21 00:36 Globulin 4.1 g/dL (2.5-4.5) 12/26/21 00:36 Albumin/Globulin Ratio 0.8 Ratio (1.1-2.1) L 12/26/21 00:36 XRAY XRAY Interpreted by: Radiologist (REPORT NOTED ) and Self EKG Rate: 87 [place]: Normal Rhythm: NSR Block: AVB Hypertrophy: None ST: Nonsp Opioid Opioid Risk Tool Age (Ez box if 16-45): No History of Preadolescent Sexual Abuse: No Total: 0 Total Score Risk Category: Low Risk Copyright: Brian BARNES predicting aberrant behaviors Diagnosis Discharge Problem: Dehydration, Elevated troponin, Hallucinations, SOB (shortness of breath) Instructions Instructions: Shortness of Breath, Adult, [id number] How to Take Your Blood Pressure, [id number] Shortness of Breath, Adult Coronary Artery Disease, Male Form - Blood Pressure Record Sheet Cough, Adult Managing Your Hypertension Rehydration, Elderly Dehydration, Elderly, [id number] Hypertension Forms: Excuse From Work or School Precautions for COVID19 [facility] Social Distancing
[2021-12-26 00:27] VITALS: BMI 36.5
[2021-12-26 00:46] LABS: BASOPHILS % (AUTO) 0.4 % (0.2-1.0); EOSINOPHILS % (AUTO) 0.7 % (0.9-2.9); HEMOGLOBIN 11.1 g/dL (13.5-18.0); LYMPHOCYTES # (AUTO) 1.8 X10^3/uL (1.3-2.9); LYMPHOCYTES % (AUTO) 30.6 % (21.0-51.0); MEAN CORPUSCULAR HGB CONC 33.6 g/dL (33.0-35.0); MEAN CORPUSCULAR VOLUME 89.5 fL (80.0-100.0); MEAN PLATELET VOLUME 8.6 fL (7.4-11.0); MONOCYTES # (AUTO) 0.6 x10^3/uL (0.3-0.8); NEUTROPHILS # (AUTO) 3.3 x10^3/uL (2.2-4.8); NEUTROPHILS % (AUTO) 58.3 % (42.0-75.0); RED BLOOD COUNT 3.69 X10^6/uL (4.7-6.0); RED CELL DISTRIBUTION WIDTH 14.4 % (11.6-16.5); WHITE BLOOD COUNT 5.7 X10^3/uL (3.6-10.0)
[2021-12-26 01:14] LABS: ALANINE AMINOTRANSFERASE 39 Units/L (12-78); ALBUMIN 3.3 g/dL (3.4-5.0); ALKALINE PHOSPHATASE 59 Units/L (46-116); ASPARTATE AMINO TRANSFERASE 19 Units/L (15-37); BLOOD UREA NITROGEN 25 mg/dL (7-18); CALCIUM 8.6 mg/dL (8.5-10.1); CARBON DIOXIDE 26.1 mmol/L (21-32); CHLORIDE 107 mmol/L (98-107); CKMB % 1.5 % (<4); COR CA(FOR HYPOALB) 9.2 mg/dL (8.5-10.1); COR NA(FOR HYPERGLY) 142 mmol/L (136-145); CREATINE KINASE 65 Units/L (39-308); CREATINE KINASE MB < 1.0 ng/mL (0-4.0); CREATININE 1.57 mg/dL (0.70-1.30); SODIUM 141 mmol/L (136-145); TOTAL PROTEIN 7.4 g/dL (6.4-8.2); eGFR NON BLACK RACES 47 (>60)
--- NOTE | 2021-12-26 01:54 | RAD ---
[facility]ERE DISPATCHED TO PATIENT'S RESIDENCE FOR SOB AND ANXIETY. STATES HE HAS BEEN FEELING SOB, ANXIOUS, AND NAUSEATED. ANXIETY, DEPRESSION, HTN, [place], AFIBSTUDYCHEST, 1 [id number] trachea is midline. The cardiac silhouette is stable. The lungs are clear without focal infiltrate or effusion. The bony thorax is unremarkable.IMPRESSIONMild cardiomegaly. No active cardiopulmonary disease.Electronically signed by: Elmer Pinto (Dec 26, 2021 01:53:30)
[2021-12-26 03:10] LABS: CKMB % 1.6 % (<4); CREATINE KINASE 61 Units/L (39-308); CREATINE KINASE MB < 1.0 ng/mL (0-4.0)
[2021-12-26] MEDS: NS 1,000 ML IV 1,000 ML IV SCH ×3 (05:00→23:17)
[2021-12-26 06:16] LABS: BILIRUBIN,URINE NEGATIVE (NEGATIVE); BLOOD/HEMOGLOBIN,URINE NEGATIVE (NEGATIVE); GLUCOSE, URINE NEGATIVE (NEGATIVE); KETONES,URINE NEGATIVE (NEGATIVE); LEUKOCYTE ESTERASE ,URINE NEGATIVE (NEGATIVE); NITRITES,URINE NEGATIVE (NEGATIVE); PROTEIN,URINE NEGATIVE (NEGATIVE); UROBILINOGEN,URINE NORMAL (NORMAL)
[2021-12-26 06:47] LABS: APPEARANCE,URINE CLEAR (CLEAR); COLOR,URINE YELLOW (YELLOW)
[2021-12-26 09:39] LABS: CKMB % 1.6 % (<4); CREATINE KINASE 62 Units/L (39-308); CREATINE KINASE MB < 1.0 ng/mL (0-4.0)
--- NOTE | 2021-12-26 10:00 | DR.H&P ---
H&P History & Physical for Day of: H&P Date: 12/26/21 Chief Complaint Chief Complaint: Hallucinations Anxiety Allergies Allergies Allergy/AdvReac Type Severity Reaction Status Date / Time codeine Allergy Verified 01/01/21 16:54 History of Present Illness History of Present Illness: Pt is a 66 year old male past medical history of atrial fibrillation, hypertension, legally blind, presenting with hallucinations and anxiety. He reports he has been unable to sleep for the past 2-3 days and is seeing people in his home. Family member came to check on patient and reported patient was not making sense and seeing things. Labs/imaging: Wbc 5.7, Hgb 11.1, Plt 167, Na 141, K 3.6, Creatinine 1.57, Glucose 149. CXR: no acute cardiopulmonary findings, UA negative, Troponin 61>62, Ekg no STEMI. Pt admitted for observation. He is well known to me and due to blindness, sometimes will see objects that are not there. Appears to be exacerbated when he does not sleep wel l at night. He is currently on seroquel for symptoms. Will increase dose of seroquel to 200mg qhs. Pt did have mild elevated of troponin which has been like that in the past and has had recent full cardiac workup that was negative except for needing an ablation for atrial fibrillation. He denies cardiopulmonary symptoms. Will trend cardiac enzymes and monitor closely. Follow up labs in the morning. Past Medical History Past Medical History: Dyslipidemia and Hypertension Past Surgical History Surgical History: Tonsillectomy and Other Family History Family Medical History: Coronary Artery Disease and Hypertension Social History Does patient currently use any type of tobacco product: No Have you used tobacco products in the last 12 months: No Type of Tobacco Use: None Does any household member use tobacco: No Alcohol Use: None Drug Use: None Medications Home Medications: codeine Allergy (Verified 01/01/21 16:54) CONTINUE taking the following medications quetiapine 100 mg PO QHS 12/26/21 [History] Labs Result Diagrams: 12/27/21 04:40 12/27/21 04:40 Labs: Laboratory WBC 5.7 X10^3/uL (3.6-10.0) 12/26/21 00:36 RBC 3.69 X10^6/uL (4.7-6.0) L 12/26/21 00:36 Hgb 11.1 g/dL (13.5-18.0) L 12/26/21 00:36 Hct 33.0 % (42.0-54.0) L 12/26/21 00:36 MCV 89.5 fL (80.0-100.0) 12/26/21 00:36 MCH 30.0 pg (27.0-34.0) 12/26/21 00:36 MCHC 33.6 g/dL (33.0-35.0) 12/26/21 00:36 RDW 14.4 % (11.6-16.5) 12/26/21 00:36 Plt Count 167 X10^3/uL (150.0-450.0) 12/26/21 00:36 MPV 8.6 fL (7.4-11.0) 12/26/21 00:36 Neut % (Auto) 58.3 % (42.0-75.0) 12/26/21 00:36 Lymph % (Auto) 30.6 % (21.0-51.0) 12/26/21 00:36 [place] % (Auto) 10.0 % (0.0-13.0) 12/26/21 00:36 Eos % (Auto) 0.7 % (0.9-2.9) L 12/26/21 00:36 Baso % (Auto) 0.4 % (0.2-1.0) 12/26/21 00:36 Neut # (Auto) 3.3 x10^3/uL (2.2-4.8) 12/26/21 00:36 Lymph # (Auto) 1.8 X10^3/uL (1.3-2.9) 12/26/21 00:36 [place] # (Auto) 0.6 x10^3/uL (0.3-0.8) 12/26/21 00:36 Eos # (Auto) 0.0 x10^3/uL (0.0-0.2) 12/26/21 00:36 Baso # (Auto) 0.0 X10^3/uL (0.0-0.1) 12/26/21 00:36 Absolute Nucleated RBC 0.1 /100WBC 12/26/21 00:36 Sodium 141 mmol/L (136-145) 12/26/21 00:36 Corrected Sodium 142 mmol/L (136-145) 12/26/21 00:36 Potassium 3.6 mmol/L (3.5-5.1) 12/26/21 00:36 Chloride 107 mmol/L (98-107) 12/26/21 00:36 Carbon Dioxide 26.1 mmol/L (21-32) 12/26/21 00:36 BUN 25 mg/dL (7-18) H 12/26/21 00:36 Creatinine 1.57 mg/dL (0.70-1.30) H 12/26/21 00:36 Est GFR (MDRD) Af Amer 57 (>60) L 12/26/21 00:36 Est GFR (MDRD) Non-Af 47 (>60) L 12/26/21 00:36 Glucose 149 mg/dL (65-99) H 12/26/21 00:36 Calcium 8.6 mg/dL (8.5-10.1) 12/26/21 00:36 Corrected Calcium 9.2 mg/dL (8.5-10.1) 12/26/21 00:36 Magnesium 2.3 mg/dL (1.7-2.9) 12/26/21 02:36 Total Bilirubin 0.10 mg/dL (0.2-1.0) L 12/26/21 00:36 AST 19 Units/L (15-37) 12/26/21 00:36 ALT 39 Units/L (12-78) 12/26/21 00:36 Alkaline Phosphatase 59 Units/L (46-116) 12/26/21 00:36 Creatine Kinase 62 Units/L (39-308) 12/26/21 09:02 CK-MB (CK-2) < 1.0 ng/mL (0-4.0) 12/26/21 09:02 CK/CKMB % Calc 1.6 % (<4) 12/26/21 09:02 Troponin I High Sens 66.4 ng/L (4.0-60.0) H* 12/26/21 09:02 Total Protein 7.4 g/dL (6.4-8.2) 12/26/21 00:36 Albumin 3.3 g/dL (3.4-5.0) L 12/26/21 00:36 Globulin 4.1 g/dL (2.5-4.5) 12/26/21 00:36 Albumin/Globulin Ratio 0.8 Ratio (1.1-2.1) L 12/26/21 00:36 Specimen Type Random urine 12/26/21 05:09 Urine Color Yellow (YELLOW) 12/26/21 05:09 Urine Appearance Clear (CLEAR) 12/26/21 05:09 Urine pH 7.0 (5.0 - 8.0) 12/26/21 05:09 Ur Specific [place] 1.010 (1.000-1.030) 12/26/21 05:09 Urine Protein Negative (NEGATIVE) 12/26/21 05:09 Urine Glucose (UA) Negative (NEGATIVE) 12/26/21 05:09 Urine Ketones Negative (NEGATIVE) 12/26/21 05:09 Urine Blood Negative (NEGATIVE) 12/26/21 05:09 Urine Nitrite Negative (NEGATIVE) 12/26/21 05:09 Urine Bilirubin Negative (NEGATIVE) 12/26/21 05:09 Urine Urobilinogen Normal (NORMAL) 12/26/21 05:09 Ur Leukocyte Esterase Negative (NEGATIVE) 12/26/21 05:09 SARS-CoV-2 (PCR) Negative (NEGATIVE) 12/26/21 04:45 Review of Systems Constitutional: No Symptoms Reported Eyes: Other (Legally Blind) ENT: No Symptoms Reported Respiratory: No Symptoms Reported Cardiovascular: No Symptoms Reported Gastrointestinal: No Symptoms Reported Genitourinary: No Symptoms Reported Musculoskeletal: No Symptoms Reported Skin: No Symptoms Reported Neurological: No Symptoms Reported Physical Exam Vital Signs: Temperature 98.1 F Pulse Rate [Right Radial] 70 Pulse Rate [Radial] 70 Pulse Rate 78 Respiratory Rate 20 Blood Pressure [Right Arm] 144/81 Blood Pressure 134/73 O2 Sat by Pulse Oximetry 98 Oriented: Normal Eyes: Other (Legally blind) Ear: Normal Nose: Normal Throat: Normal Respiratory: Clear Throughout Cardiovascular: Normal : Normal Auscultation: Bowel Sounds: Normal Palpation: Normal Tenderness: Normal Skin: Normal Musculoskeletal: Normal Psychiatric: Anxiety Mood Description: Anxious Affect: Normal Speech Pattern: Clear and Appropriate Assessment/Plan (1) Hallucinations: Status: Acute Plan: Increase seroquel Continue to monitor (2) Elevated troponin: Status: Acute Plan: trend cardiac enzymes Review H&P Reviewed: Yes Patient was examined?: Yes
[2021-12-26] MEDS ORDERED: ZESTRIL TAB 20 MG ONE (11:09)
[2021-12-26] MEDS: XANAX PO PRN ×2 (11:11→20:49)
[2021-12-26] MEDS: ELIQUIS PO SCH ×2 (11:11→20:50)
[2021-12-26] MEDS: ZESTRIL TAB 20 MG PO SCH (11:11)
[2021-12-26] MEDS: HYDROCHLOROTHIAZIDE 12.5 MG CAP PO SCH (11:11)
[2021-12-26] MEDS: EFFEXOR XR 75 MG CAP 24-HR PO SCH (11:11)
[2021-12-26] MEDS: CORDARONE TAB 200 MG PO SCH ×2 (11:12→20:50)
[2021-12-26] MEDS: PERCOCET TAB 5/325 MG PO PRN (12:08)
[2021-12-26 16:05] LABS: CKMB % 1.8 % (<4); CREATINE KINASE 56 Units/L (39-308); CREATINE KINASE MB < 1.0 ng/mL (0-4.0)
[2021-12-26] MEDS ORDERED: CATAPRES TAB 0.1 MG PO ONE (19:03)
[2021-12-26] MEDS: ALPHAGAN 0.2% OPHTH SOLN OP SCH (20:49)
[2021-12-26] MEDS ORDERED: AMBIEN PO SCH (21:00)
[2021-12-26] MEDS ORDERED: XALATAN OP SCH (21:00)
[2021-12-26] MEDS ORDERED: ZOCOR TAB 20 MG PO SCH (21:00)
[2021-12-26] MEDS ORDERED: PEPCID TAB 20 MG PO SCH (21:00)
[2021-12-26] MEDS: APRESOLINE TAB 25 MG PO SCH (21:42)
[2021-12-27 05:09] LABS: BASOPHILS % (AUTO) 0.5 % (0.2-1.0); EOSINOPHILS # (AUTO) 0.1 x10^3/uL (0.0-0.2); EOSINOPHILS % (AUTO) 2.3 % (0.9-2.9); HEMATOCRIT 30.4 % (42.0-54.0); HEMOGLOBIN 10.3 g/dL (13.5-18.0); LYMPHOCYTES # (AUTO) 1.6 X10^3/uL (1.3-2.9); LYMPHOCYTES % (AUTO) 38.7 % (21.0-51.0); MEAN CORPUSCULAR HEMOGLOBIN 30.3 pg (27.0-34.0); MEAN CORPUSCULAR HGB CONC 33.9 g/dL (33.0-35.0); MEAN CORPUSCULAR VOLUME 89.4 fL (80.0-100.0); MEAN PLATELET VOLUME 9.5 fL (7.4-11.0); MONOCYTES # (AUTO) 0.4 x10^3/uL (0.3-0.8); MONOCYTES % (AUTO) 9.3 % (0.0-13.0); NEUTROPHILS # (AUTO) 2.1 x10^3/uL (2.2-4.8); NEUTROPHILS % (AUTO) 49.2 % (42.0-75.0); RED CELL DISTRIBUTION WIDTH 14.2 % (11.6-16.5); WHITE BLOOD COUNT 4.2 X10^3/uL (3.6-10.0)
[2021-12-27 05:31] LABS: ALANINE AMINOTRANSFERASE 33 Units/L (12-78); ALBUMIN 2.9 g/dL (3.4-5.0); ALKALINE PHOSPHATASE 54 Units/L (46-116); ASPARTATE AMINO TRANSFERASE 15 Units/L (15-37); BLOOD UREA NITROGEN 21 mg/dL (7-18); CALCIUM 8.4 mg/dL (8.5-10.1); CARBON DIOXIDE 28.1 mmol/L (21-32); CHLORIDE 112 mmol/L (98-107); COR CA(FOR HYPOALB) 9.3 mg/dL (8.5-10.1); CREATININE 1.53 mg/dL (0.70-1.30); SODIUM 146 mmol/L (136-145); TOTAL PROTEIN 6.8 g/dL (6.4-8.2); eGFR NON BLACK RACES 48 (>60)
[2021-12-27] MEDS ORDERED: ZESTRIL TAB 20 MG ONE (08:08)
[2021-12-27] MEDS: NS 1,000 ML IV 1,000 ML IV SCH ×2 (08:43→10:21)
[2021-12-27] MEDS: PERCOCET TAB 5/325 MG PO PRN (08:44)
[2021-12-27] MEDS: HYDROCHLOROTHIAZIDE 12.5 MG CAP PO SCH (08:44)
[2021-12-27] MEDS: ALPHAGAN 0.2% OPHTH SOLN OP SCH (08:44)
[2021-12-27] MEDS: CORDARONE TAB 200 MG PO SCH (08:46)
[2021-12-27] MEDS: ELIQUIS PO SCH (08:47)
[2021-12-27] MEDS: APRESOLINE TAB 25 MG PO SCH (08:47)
[2021-12-27] MEDS: EFFEXOR XR 75 MG CAP 24-HR PO SCH (08:47)
[2021-12-27] MEDS: ZESTRIL TAB 20 MG PO SCH (08:47)
[2021-12-27] MEDS ORDERED: PEPCID TAB 20 MG PO SCH (09:00)
[2021-12-27] MEDS ORDERED: NEURONTIN CAP 100 MG PO SCH (09:00)
--- NOTE | 2021-12-27 10:27 | PCM.PROG ---
Progress Note Progress Note for Day of Date of Exam: 12/27/21 Subjective Subjective: Pt is a 66 year old male past medical history of atrial fibrillation, hypertension, legally blind, admitted for hallucinations, acute anxiety, and elevated troponin. Overnight patient was agitated, hallucinating that people were trying to kidnap him. Had to be put briefly on restraints but i s now not requiring them. This morning he did recall some of the events and did say he slept better at night. Labs/imaging: Wbc 4.2, Hgb 10.3, Plt 162, Na 146, K 3.7, Creatinine 1.53, Glucose 81. Troponin 75>63, Ekg no STEMI. Troponins have trended down, non-cardiac related mild elevation. Due to the symptoms of hallucinations and his agitated behavior overnight will try to get him into a behavior unit. He is otherwise medically stable. Continue to closely monitor. Past Medical Family Social History Past Med/Fam/Surg Hx: No changes since H&P Allergies: Allergies codeine Allergy (Verified 01/01/21 16:54) Review of Systems ROS: No change since H&P Vital Signs and I&O's Vital Signs: Temperature 98.4 F Pulse Rate [Right Radial] 79 Pulse Rate [Radial] 70 Pulse Rate 78 Respiratory Rate 21 Blood Pressure [Right Arm] 183/92 Blood Pressure 134/73 O2 Sat by Pulse Oximetry 99 Intake and Output: Intake & Output 12/24/21 12/25/21 12/26/21 12/27/21 23:59 23:59 23:59 23:59 Intake Total 1843 / 1843 600 / 600 Output Total 1065 / 1065 Balance 778 / 778 600 / 600 Physical Exam Oriented: Normal Eyes: Other (Legally blind) Ear: Normal Nose: Normal Throat: Normal Respiratory: Normal Cardiovascular: Normal : Normal Auscultation: Bowel Sounds: Normal Tenderness: Normal Skin: Normal Musculoskeletal: Normal Psychiatric: Anxiety Mood Description: Anxious Affect: Normal Speech Pattern: Clear and Appropriate Laboratory and Diagnostics Result Diagrams: 12/27/21 04:40 12/27/21 04:40 Labs: Laboratory WBC 4.2 X10^3/uL (3.6-10.0) 12/27/21 04:40 RBC 3.40 X10^6/uL (4.7-6.0) L 12/27/21 04:40 Hgb 10.3 g/dL (13.5-18.0) L 12/27/21 04:40 Hct 30.4 % (42.0-54.0) L 12/27/21 04:40 MCV 89.4 fL (80.0-100.0) 12/27/21 04:40 MCH 30.3 pg (27.0-34.0) 12/27/21 04:40 MCHC 33.9 g/dL (33.0-35.0) 12/27/21 04:40 RDW 14.2 % (11.6-16.5) 12/27/21 04:40 Plt Count 162 X10^3/uL (150.0-450.0) 12/27/21 04:40 MPV 9.5 fL (7.4-11.0) 12/27/21 04:40 Neut % (Auto) 49.2 % (42.0-75.0) 12/27/21 04:40 Lymph % (Auto) 38.7 % (21.0-51.0) 12/27/21 04:40 [place] % (Auto) 9.3 % (0.0-13.0) 12/27/21 04:40 Eos % (Auto) 2.3 % (0.9-2.9) 12/27/21 04:40 Baso % (Auto) 0.5 % (0.2-1.0) 12/27/21 04:40 Neut # (Auto) 2.1 x10^3/uL (2.2-4.8) L 12/27/21 04:40 Lymph # (Auto) 1.6 X10^3/uL (1.3-2.9) 12/27/21 04:40 [place] # (Auto) 0.4 x10^3/uL (0.3-0.8) 12/27/21 04:40 Eos # (Auto) 0.1 x10^3/uL (0.0-0.2) 12/27/21 04:40 Baso # (Auto) 0.0 X10^3/uL (0.0-0.1) 12/27/21 04:40 Absolute Nucleated RBC 0.0 /100WBC 12/27/21 04:40 Sodium 146 mmol/L (136-145) H 12/27/21 04:40 Corrected Sodium TNP 12/27/21 04:40 Potassium 3.7 mmol/L (3.5-5.1) 12/27/21 04:40 Chloride 112 mmol/L (98-107) H 12/27/21 04:40 Carbon Dioxide 28.1 mmol/L (21-32) 12/27/21 04:40 BUN 21 mg/dL (7-18) H 12/27/21 04:40 Creatinine 1.53 mg/dL (0.70-1.30) H 12/27/21 04:40 Est GFR (MDRD) Af Amer 59 (>60) 12/27/21 04:40 Est GFR (MDRD) Non-Af 48 (>60) L 12/27/21 04:40 Glucose 81 mg/dL (65-99) 12/27/21 04:40 Calcium 8.4 mg/dL (8.5-10.1) L 12/27/21 04:40 Corrected Calcium 9.3 mg/dL (8.5-10.1) 12/27/21 04:40 Magnesium 2.3 mg/dL (1.7-2.9) 12/26/21 02:36 Total Bilirubin 0.10 mg/dL (0.2-1.0) L 12/27/21 04:40 AST 15 Units/L (15-37) 12/27/21 04:40 ALT 33 Units/L (12-78) 12/27/21 04:40 Alkaline Phosphatase 54 Units/L (46-116) 12/27/21 04:40 Creatine Kinase 56 Units/L (39-308) 12/26/21 15:14 CK-MB (CK-2) < 1.0 ng/mL (0-4.0) 12/26/21 15:14 CK/CKMB % Calc 1.8 % (<4) 12/26/21 15:14 Troponin I High Sens 63.4 ng/L (4.0-60.0) H* 12/26/21 21:54 Total Protein 6.8 g/dL (6.4-8.2) 12/27/21 04:40 Albumin 2.9 g/dL (3.4-5.0) L 12/27/21 04:40 Globulin 3.9 g/dL (2.5-4.5) 12/27/21 04:40 Albumin/Globulin Ratio 0.7 Ratio (1.1-2.1) L 12/27/21 04:40 Specimen Type Random urine 12/26/21 05:09 Urine Color Yellow (YELLOW) 12/26/21 05:09 Urine Appearance Clear (CLEAR) 12/26/21 05:09 Urine pH 7.0 (5.0 - 8.0) 12/26/21 05:09 Ur Specific [place] 1.010 (1.000-1.030) 12/26/21 05:09 Urine Protein Negative (NEGATIVE) 12/26/21 05:09 Urine Glucose (UA) Negative (NEGATIVE) 12/26/21 05:09 Urine Ketones Negative (NEGATIVE) 12/26/21 05:09 Urine Blood Negative (NEGATIVE) 12/26/21 05:09 Urine Nitrite Negative (NEGATIVE) 12/26/21 05:09 Urine Bilirubin Negative (NEGATIVE) 12/26/21 05:09 Urine Urobilinogen Normal (NORMAL) 12/26/21 05:09 Ur Leukocyte Esterase Negative (NEGATIVE) 12/26/21 05:09 SARS-CoV-2 (PCR) Negative (NEGATIVE) 12/26/21 04:45 Plan (1) Hallucinations: Status: Acute Plan: Continue seroquel (2) Elevated troponin: Status: Acute Plan: Trended down Non-cardiac related
[2021-12-27 15:49] VITALS: BP 116/59
[2021-12-27] MEDS ORDERED: TYLENOL 325 MG TAB PO PRN (16:54)
== END 2021-12-27 17:20 | disposition home or self-care (01) ==
LOC: MED/SURG 00:09 → ER 00:09 → MED/SURG 04:20
PROVIDERS: ADMIT Family Medicine; ATTEND Family Medicine
DX: R77.8 Other specified abnormalities of plasma proteins; R94.31 Abnormal electrocardiogram [ECG] [EKG]; Z20.822 Contact with and (suspected) exposure to COVID-19; F41.8 Other specified anxiety disorders; R06.02 Shortness of breath; E78.2 Mixed hyperlipidemia; R44.3 Hallucinations, unspecified; I10 Essential (primary) hypertension; Z78.1 Physical restraint status; R94.4 Abnormal results of kidney function studies

== ENCOUNTER 2023-09-30 12:13 | Observation (INO) ==
--- NOTE | 2023-09-30 12:47 | DR.DIZZY ---
HPI Time seen Time Seen by Provider: 09/30/23 12:44 PCP Primary Care Physician: Ai Complaint Chief Complaint:: Patient states that he has felt weak and tired for a while now. EMS states that the family took him to the ER roughly a week ago due to the same symptoms. They told EMS that the patient was more lethargic than he has been today. COVID-19 Coronavirus risk:travel/contact w/high risk person: No Has patient experienced Coronavirus symptoms: No Source History Provided: Patient Mode of Arrival Mode of Arrival: EMS Timing Onset of Chief Complaint: 09/30/23 PMH PMH Past Medical History: Yes Past Medical History: Anxiety, Arthritis, Depression, Dyslipidemia, GERD, Hypertension and Renal Disease Past Surgical History: Yes Surgical History: Tonsillectomy Family History History of Family Medical Conditions: Yes Family Medical History: Coronary Artery Disease and Hypertension Social History Does patient currently use any type of tobacco product: No Have you used tobacco products in the last 12 months: No Type of Tobacco Use: None Does any household member use tobacco: No Alcohol Use: None Do you use any recreational Drugs:: No Lives With: Family Lives Where: Home Travel Risk Coronavirus risk:travel/contact w/high risk person: No Has patient experienced Coronavirus symptoms: No Infectious screening In the last 2 months have you had wt loss of >10#?: NO Have you had fever, night sweats or hemotysis?: No Have you traveled outside the country in the last 6 months?: No Isolation: Standard PE Vital Signs Vitals: Vital Signs Temperature 98 F Pulse Rate 86 Pulse Rate 77 Pulse Rate 79 Pulse Rate 75 Pulse Rate 75 Pulse Rate 72 Pulse Rate 74 Pulse Rate 72 Pulse Rate 72 Pulse Rate 73 Pulse Rate 73 Pulse Rate 74 Pulse Rate 74 Pulse Rate 74 Pulse Rate 72 Pulse Rate 76 Pulse Rate 75 Pulse Rate 76 Pulse Rate 74 Pulse Rate 75 Pulse Rate 74 Pulse Rate 73 Pulse Rate 73 Pulse Rate 75 Pulse Rate 75 Pulse Rate 79 Respiratory Rate 24 Respiratory Rate 13 Respiratory Rate 27 Respiratory Rate 15 Respiratory Rate 15 Respiratory Rate 12 Respiratory Rate 13 Respiratory Rate 11 Respiratory Rate 11 Respiratory Rate 16 Respiratory Rate 16 Respiratory Rate 17 Respiratory Rate 19 Respiratory Rate 22 Respiratory Rate 18 Respiratory Rate 22 Respiratory Rate 13 Respiratory Rate 12 Respiratory Rate 10 Respiratory Rate 14 Respiratory Rate 12 Respiratory Rate 12 Respiratory Rate 12 Respiratory Rate 11 Respiratory Rate 11 Respiratory Rate 18 Blood Pressure 140/68 Blood Pressure 132/62 Blood Pressure 135/62 Blood Pressure 127/60 Blood Pressure 138/64 Blood Pressure 127/59 Blood Pressure 152/65 Blood Pressure 140/64 Blood Pressure 142/69 Blood Pressure 136/66 Blood Pressure 137/67 Blood Pressure 136/65 O2 Sat by Pulse Oximetry 98 O2 Sat by Pulse Oximetry 97 O2 Sat by Pulse Oximetry 98 O2 Sat by Pulse Oximetry 96 O2 Sat by Pulse Oximetry 98 O2 Sat by Pulse Oximetry 98 O2 Sat by Pulse Oximetry 97 O2 Sat by Pulse Oximetry 96 O2 Sat by Pulse Oximetry 98 O2 Sat by Pulse Oximetry 98 O2 Sat by Pulse Oximetry 98 ROR Labs Reviewed 09/30/23 13:04 09/30/23 13:04 Laboratory: WBC 5.1 X10^3/uL (3.6-10.0) 09/30/23 13:04 RBC 4.10 X10^6/uL (4.7-6.0) L 09/30/23 13:04 Hgb 12.0 g/dL (13.5-18.0) L 09/30/23 13:04 Hct 36.9 % (42.0-54.0) L 09/30/23 13:04 MCV 90.0 fL (80.0-100.0) 09/30/23 13:04 MCH 29.2 pg (27.0-34.0) 09/30/23 13:04 MCHC 32.5 g/dL (33.0-35.0) L 09/30/23 13:04 RDW 15.0 % (11.6-16.5) 09/30/23 13:04 Plt Count 145 X10^3/uL (150.0-450.0) L 09/30/23 13:04 MPV 9.3 fL (7.4-11.0) 09/30/23 13:04 Neut % (Auto) 55.6 % (42.0-75.0) 09/30/23 13:04 Lymph % (Auto) 29.5 % (21.0-51.0) 09/30/23 13:04 [place] % (Auto) 13.2 % (0.0-13.0) H 09/30/23 13:04 Eos % (Auto) 1.2 % (0.9-2.9) 09/30/23 13:04 Baso % (Auto) 0.5 % (0.2-1.0) 09/30/23 13:04 Neut # (Auto) 2.8 x10^3/uL (2.2-4.8) 09/30/23 13:04 Lymph # (Auto) 1.5 X10^3/uL (1.3-2.9) 09/30/23 13:04 [place] # (Auto) 0.7 x10^3/uL (0.3-0.8) 09/30/23 13:04 Eos # (Auto) 0.1 x10^3/uL (0.0-0.2) 09/30/23 13:04 Baso # (Auto) 0.0 X10^3/uL (0.0-0.1) 09/30/23 13:04 Absolute Nucleated RBC 0.2 /100WBC 09/30/23 13:04 Sodium 145 mmol/L (136-145) 09/30/23 13:04 Corrected Sodium TNP 09/30/23 13:04 Potassium 4.2 mmol/L (3.5-5.1) 09/30/23 13:04 Chloride 105 mmol/L (98-107) 09/30/23 13:04 Carbon Dioxide 29.6 mmol/L (21-32) 09/30/23 13:04 BUN 35 mg/dL (7-18) H 09/30/23 13:04 Creatinine 2.23 mg/dL (0.70-1.30) H 09/30/23 13:04 Est GFR (MDRD) Af Amer 38 (>60) L 09/30/23 13:04 Est GFR (MDRD) Non-Af 31 (>60) L 09/30/23 13:04 Glucose 67 mg/dL (65-99) 09/30/23 13:04 Calcium 9.4 mg/dL (8.5-10.1) 09/30/23 13:04 Corrected Calcium 10.0 mg/dL (8.5-10.1) 09/30/23 13:04 Total Bilirubin 0.40 mg/dL (0.2-1.0) 09/30/23 13:04 AST 171 Units/L (15-37) H 09/30/23 13:04 ALT 149 Units/L (12-78) H 09/30/23 13:04 Alkaline Phosphatase 57 Units/L (46-116) 09/30/23 13:04 Creatine Kinase 160 Units/L (39-308) 09/30/23 13:04 Troponin I High Sens 44.7 ng/L (4.0-60.0) 09/30/23 13:04 Total Protein 8.0 g/dL (6.4-8.2) 09/30/23 13:04 Albumin 3.2 g/dL (3.4-5.0) L 09/30/23 13:04 Globulin 4.8 g/dL (2.5-4.5) H 09/30/23 13:04 Albumin/Globulin Ratio 0.7 Ratio (1.1-2.1) L 09/30/23 13:04 Specimen Type Clean catch urine 09/30/23 15:25 Urine Color Yellow (YELLOW) 09/30/23 15:25 Urine Appearance Clear (CLEAR) 09/30/23 15:25 Urine pH 6.0 (5.0 - 8.0) 09/30/23 15:25 Ur Specific [place] 1.025 (1.000-1.030) 09/30/23 15:25 Urine Protein 1+ (NEGATIVE) 09/30/23 15:25 Urine Glucose (UA) Negative (NEGATIVE) 09/30/23 15: Urine Ketones 2+ (NEGATIVE) 09/30/23 15:25 Urine Blood Negative (NEGATIVE) 09/30/23 15:25 Urine Nitrite Negative (NEGATIVE) 09/30/23 15:25 Urine Bilirubin Negative (NEGATIVE) 09/30/23 15:25 Urine Urobilinogen Normal (NORMAL) 09/30/23 15:25 Ur Leukocyte Esterase Negative (NEGATIVE) 09/30/23 15:25 Urine RBC None seen /HPF (0-3) 09/30/23 15:25 Urine WBC 0-2 /HPF (0-5) 09/30/23 15:25 Ur Squamous Epith Cells Rare /HPF (NEGATIVE) 09/30/23 15:25 Urine Bacteria Negative /HPF (NEGATIVE) 09/30/23 15:25 Hyaline Casts Rare /LPF (NEGATIVE) 09/30/23 15:25 Urine Mucus Few /HPF (NEGATIVE) 09/30/23 15:25 Ur Culture Indicated? No/not indicated 09/30/23 15:25 Opioid Opioid Risk Tool Age (Ez box if 16-45): No History of Preadolescent Sexual Abuse: No Total: 0 Total Score Risk Category: Low Risk Copyright: Brian BARNES predicting aberrant behaviors Discharge Plan Discharge Plan Patient Disposition: 01 HOME, SELF-CARE Condition: Stable Orders to Discharge Patient Discharge Orders: Transfer (Routine); Ordered 09/30/23 Ordered By: ABBIE VALLADARES
[2023-09-30 13:11] LABS: BASOPHILS % (AUTO) 0.5 % (0.2-1.0); EOSINOPHILS # (AUTO) 0.1 x10^3/uL (0.0-0.2); EOSINOPHILS % (AUTO) 1.2 % (0.9-2.9); HEMATOCRIT 36.9 % (42.0-54.0); LYMPHOCYTES # (AUTO) 1.5 X10^3/uL (1.3-2.9); LYMPHOCYTES % (AUTO) 29.5 % (21.0-51.0); MEAN CORPUSCULAR HEMOGLOBIN 29.2 pg (27.0-34.0); MEAN CORPUSCULAR HGB CONC 32.5 g/dL (33.0-35.0); MEAN PLATELET VOLUME 9.3 fL (7.4-11.0); MONOCYTES # (AUTO) 0.7 x10^3/uL (0.3-0.8); MONOCYTES % (AUTO) 13.2 % (0.0-13.0); NEUTROPHILS # (AUTO) 2.8 x10^3/uL (2.2-4.8); NEUTROPHILS % (AUTO) 55.6 % (42.0-75.0); PLATELET COUNT 145 X10^3/uL (150.0-450.0); WHITE BLOOD COUNT 5.1 X10^3/uL (3.6-10.0)
[2023-09-30 13:33] LABS: ALANINE AMINOTRANSFERASE 149 Units/L (12-78); ALBUMIN 3.2 g/dL (3.4-5.0); ALKALINE PHOSPHATASE 57 Units/L (46-116); ASPARTATE AMINO TRANSFERASE 171 Units/L (15-37); BLOOD UREA NITROGEN 35 mg/dL (7-18); CALCIUM 9.4 mg/dL (8.5-10.1); CARBON DIOXIDE 29.6 mmol/L (21-32); CHLORIDE 105 mmol/L (98-107); CREATINE KINASE 160 Units/L (39-308); CREATININE 2.23 mg/dL (0.70-1.30); GLUCOSE 67 mg/dL (65-99); POTASSIUM 4.2 mmol/L (3.5-5.1); SODIUM 145 mmol/L (136-145); eGFR NON BLACK RACES 31 (>60)
--- NOTE | 2023-09-30 13:54 | CT ---
EXAM: BRAIN W/O CON HISTORY: WEAKNESS LEFT SIDE, LETHARGIC; COMPARISON: Prior study or studies were utilized for comparison during interpretation with the most relevant seven ed 09/23/2023 TECHNIQUE: CT images were obtained. Multiplanar reconstructions were created on a separate workstation and used during interpretation. All CT scans at this facility is dose modulation, iterative reconstruction, an d/or weight-based dosing as appropriate to reduce radiation to levels as low as reasonably achievable (ALARA). Postprocessing details, radiation dose, and contrast dose (if applicable) are recorded in t he patient's medical record. FINDINGS: Acute findings: There is no intracranial hemorrhage. No mass effect. No intra-axial or extra-axial fl uid collection. There is no mass. No tentorial, uncal, or tonsillar herniation. Brain volume and white matter: There is diffuse cortical atrophy. There is hypoattenuation in the sup ratentorial white matter consistent with chronic microvascular ischemic disease. Ventricles: No hydrocephalus Midline structures: Pituitary gland and corpus callosum are normal. Posterior fossa and skull base: Cerebellum and posterior fossa are within normal limits. Basal cister ns are not effaced. Sinuses and mastoids: Paranasal sinuses and mastoid air cells are predominantly clear. Globes and Orbits: There is a left lens implant. Globes are intact. Bony orbits are intact. Extraocul ar muscles and retrobulbar fat appear normal. Skull and soft tissues: No depressed skull fracture. Calvarium appears intact. No scalp injury is jeff ntified. IMPRESSION: 1. No acute intracranial abnormality THIS IS AN ELECTRONICALLY VERIFIED FINAL REPORT 09/30/2023 1:51 PM - Electronically signed by Adrian Caraballo MD
[2023-09-30] MEDS ORDERED: NS 1/2 1,000 ML IV 1,000 ML IV ONE ×2 (14:28→14:29)
[2023-09-30 15:32] LABS: BILIRUBIN,URINE NEGATIVE (NEGATIVE); BLOOD/HEMOGLOBIN,URINE NEGATIVE (NEGATIVE); GLUCOSE, URINE NEGATIVE (NEGATIVE); KETONES,URINE 2+ (NEGATIVE); LEUKOCYTE ESTERASE ,URINE NEGATIVE (NEGATIVE); NITRITES,URINE NEGATIVE (NEGATIVE); PROTEIN,URINE 1+ (NEGATIVE); UROBILINOGEN,URINE NORMAL (NORMAL)
[2023-09-30 15:44] LABS: APPEARANCE,URINE CLEAR (CLEAR); BACTERIA,URINE NEGATIVE /HPF (NEGATIVE); COLOR,URINE YELLOW (YELLOW); HYALINE CASTS, URINE RARE /LPF (NEGATIVE); RBC,URINE NONE SEEN /HPF (0-3); SQUAMOUS EPITHELIAL CELL,UR RARE /HPF (NEGATIVE)
[2023-09-30 21:09] VITALS: BMI 28.6
[2023-09-30] MEDS ORDERED: TYLENOL 325 MG TAB PO PRN (21:27)
[2023-09-30] MEDS: NS 1,000 ML IV 1,000 ML IV SCH (21:57)
[2023-09-30] MEDS: NYSTATIN POWDER TOP SCH (23:16)
[2023-09-30] MEDS: RESTORIL CAP 15 MG PO PRN (23:36)
[2023-10-01 06:35] LABS: BASOPHILS % (AUTO) 0.4 % (0.2-1.0); EOSINOPHILS # (AUTO) 0.1 x10^3/uL (0.0-0.2); EOSINOPHILS % (AUTO) 1.5 % (0.9-2.9); HEMATOCRIT 34.7 % (42.0-54.0); HEMOGLOBIN 11.4 g/dL (13.5-18.0); LYMPHOCYTES # (AUTO) 1.1 X10^3/uL (1.3-2.9); LYMPHOCYTES % (AUTO) 23.8 % (21.0-51.0); MEAN CORPUSCULAR HEMOGLOBIN 29.2 pg (27.0-34.0); MEAN CORPUSCULAR HGB CONC 32.8 g/dL (33.0-35.0); MEAN PLATELET VOLUME 9.1 fL (7.4-11.0); MONOCYTES # (AUTO) 0.5 x10^3/uL (0.3-0.8); MONOCYTES % (AUTO) 11.4 % (0.0-13.0); NEUTROPHILS # (AUTO) 2.8 x10^3/uL (2.2-4.8); NEUTROPHILS % (AUTO) 62.9 % (42.0-75.0); PLATELET COUNT 155 X10^3/uL (150.0-450.0); RED CELL DISTRIBUTION WIDTH 15.1 % (11.6-16.5); WHITE BLOOD COUNT 4.5 X10^3/uL (3.6-10.0)
[2023-10-01 06:55] LABS: ALANINE AMINOTRANSFERASE 140 Units/L (12-78); ALBUMIN 2.8 g/dL (3.4-5.0); ALKALINE PHOSPHATASE 53 Units/L (46-116); ASPARTATE AMINO TRANSFERASE 149 Units/L (15-37); BLOOD UREA NITROGEN 24 mg/dL (7-18); CALCIUM 9.1 mg/dL (8.5-10.1); CARBON DIOXIDE 27.8 mmol/L (21-32); CHLORIDE 106 mmol/L (98-107); COR CA(FOR HYPOALB) 10.1 mg/dL (8.5-10.1); CREATININE 1.71 mg/dL (0.70-1.30); GLUCOSE 63 mg/dL (65-99); MAGNESIUM 2.1 mg/dL (2.0-2.9); POTASSIUM 3.7 mmol/L (3.5-5.1); SODIUM 145 mmol/L (136-145); TOTAL PROTEIN 7.3 g/dL (6.4-8.2); eGFR NON BLACK RACES 42 (>60)
[2023-10-01] MEDS: NYSTATIN POWDER TOP SCH ×2 (09:01→21:12)
[2023-10-01] MEDS: NS 1,000 ML IV 1,000 ML IV SCH ×2 (11:04→23:18)
[2023-10-01] MEDS: RESTORIL CAP 15 MG PO PRN (21:11)
--- NOTE | 2023-10-01 23:27 | DR.H&P ---
H&P History & Physical for Day of: H&P Date: 09/30/23 Chief Complaint Chief Complaint: Weakness, fall, dehydration Allergies Allergies Allergy/AdvReac Type Severity Reaction Status Date / Time codeine Allergy Verified 09/23/23 10:09 History of Present Illness History of Present Illness: Patient is a 68-year-old male with past medical history of atrial fibrillation, hypertension, legally blind, presenting after a fall and having generalized weakness. In the ED he was noted to be dehydrated. Labs/imaging: WBC 5.1, hemoglobin 12, platelets 145, sodium 145, potassium 4.2, creatinine 2.23, glucose 67, UA negative, CT of the head was obtained that revealed no acute intracranial abnormalities. Patient was admitted for further observation. Will restart home medications. Continue IV fluid hydration for dehydration. Order physical therapy. Continue closely monitor and follow-up labs in the morning. Past Medical History Past Medical History: Anxiety, Arthritis, Depression, Dyslipidemia, GERD, Hypertension and Renal Disease Past Surgical History Surgical History: Tonsillectomy Family History Family Medical History: Diabetes Mellitus, [place], Coronary Artery Disease and Hypertension Social History Does patient currently use any type of tobacco product: No Have you used tobacco products in the last 12 months: No Type of Tobacco Use: None Does any household member use tobacco: No Alcohol Use: None Drug Use: None Medications Home Medications: Home Medications Medication Instructions Recorded Confirmed Type hydroxyzine pamoate 25 mg capsule 25 mg PO HS 09/23/23 10/01/23 History sertraline 100 mg tablet 100 mg PO QPM 10/01/23 10/01/23 History Labs 10/01/23 05:58 10/01/23 05:58 Labs: Laboratory WBC 4.5 X10^3/uL (3.6-10.0) 10/01/23 05:58 RBC 3.90 X10^6/uL (4.7-6.0) L 10/01/23 05:58 Hgb 11.4 g/dL (13.5-18.0) L 10/01/23 05:58 Hct 34.7 % (42.0-54.0) L 10/01/23 05:58 MCV 89.0 fL (80.0-100.0) 10/01/23 05:58 MCH 29.2 pg (27.0-34.0) 10/01/23 05:58 MCHC 32.8 g/dL (33.0-35.0) L 10/01/23 05:58 RDW 15.1 % (11.6-16.5) 10/01/23 05:58 Plt Count 155 X10^3/uL (150.0-450.0) 10/01/23 05:58 MPV 9.1 fL (7.4-11.0) 10/01/23 05:58 Neut % (Auto) 62.9 % (42.0-75.0) 10/01/23 05:58 Lymph % (Auto) 23.8 % (21.0-51.0) 10/01/23 05:58 [place] % (Auto) 11.4 % (0.0-13.0) 10/01/23 05:58 Eos % (Auto) 1.5 % (0.9-2.9) 10/01/23 05:58 Baso % (Auto) 0.4 % (0.2-1.0) 10/01/23 05:58 Neut # (Auto) 2.8 x10^3/uL (2.2-4.8) 10/01/23 05:58 Lymph # (Auto) 1.1 X10^3/uL (1.3-2.9) L 10/01/23 05:58 [place] # (Auto) 0.5 x10^3/uL (0.3-0.8) 10/01/23 05:58 Eos # (Auto) 0.1 x10^3/uL (0.0-0.2) 10/01/23 05:58 Baso # (Auto) 0.0 X10^3/uL (0.0-0.1) 10/01/23 05:58 Absolute Nucleated RBC 0.1 /100WBC 10/01/23 05:58 Sodium 145 mmol/L (136-145) 10/01/23 05:58 Corrected Sodium TNP 10/01/23 05:58 Potassium 3.7 mmol/L (3.5-5.1) 10/01/23 05:58 Chloride 106 mmol/L (98-107) 10/01/23 05:58 Carbon Dioxide 27.8 mmol/L (21-32) 10/01/23 05:58 BUN 24 mg/dL (7-18) H 10/01/23 05:58 Creatinine 1.71 mg/dL (0.70-1.30) H 10/01/23 05:58 Est GFR (MDRD) Af Amer 51 (>60) L 10/01/23 05:58 Est GFR (MDRD) Non-Af 42 (>60) L 10/01/23 05:58 Glucose 63 mg/dL (65-99) L 10/01/23 05:58 Calcium 9.1 mg/dL (8.5-10.1) 10/01/23 05:58 Corrected Calcium 10.1 mg/dL (8.5-10.1) 10/01/23 05:58 Magnesium 2.1 mg/dL (2.0-2.9) 10/01/23 05:58 Total Bilirubin 0.40 mg/dL (0.2-1.0) 10/01/23 05:58 AST 149 Units/L (15-37) H 10/01/23 05:58 ALT 140 Units/L (12-78) H 10/01/23 05:58 Alkaline Phosphatase 53 Units/L (46-116) 10/01/23 05:58 Creatine Kinase 160 Units/L (39-308) 09/30/23 13:04 Troponin I High Sens 44.7 ng/L (4.0-60.0) 09/30/23 13:04 Total Protein 7.3 g/dL (6.4-8.2) 10/01/23 05:58 Albumin 2.8 g/dL (3.4-5.0) L 10/01/23 05:58 Globulin 4.5 g/dL (2.5-4.5) 10/01/23 05:58 Albumin/Globulin Ratio 0.6 Ratio (1.1-2.1) L 10/01/23 05:58 Specimen Type Clean catch urine 09/30/23 15:25 Urine Color Yellow (YELLOW) 09/30/23 15:25 Urine Appearance Clear (CLEAR) 09/30/23 15:25 Urine pH 6.0 (5.0 - 8.0) 09/30/23 15:25 Ur Specific [place] 1.025 (1.000-1.030) 09/30/23 15:25 Urine Protein 1+ (NEGATIVE) 09/30/23 15:25 Urine Glucose (UA) Negative (NEGATIVE) 09/30/23 15:25 Urine Ketones 2+ (NEGATIVE) 09/30/23 15:25 Urine Blood Negative (NEGATIVE) 09/30/23 15:25 Urine Nitrite Negative (NEGATIVE) 09/30/23 15:25 Urine Bilirubin Negative (NEGATIVE) 09/30/23 15:25 Urine Urobilinogen Normal (NORMAL) 09/30/23 15:25 Ur Leukocyte Esterase Negative (NEGATIVE) 09/30/23 15:25 Urine RBC None seen /HPF (0-3) 09/30/23 15:25 Urine WBC 0-2 /HPF (0-5) 09/30/23 15:25 Ur Squamous Epith Cells Rare /HPF (NEGATIVE) 09/30/23 15:25 Urine Bacteria Negative /HPF (NEGATIVE) 09/30/23 15:25 Hyaline Casts Rare /LPF (NEGATIVE) 09/30/23 15:25 Urine Mucus Few /HPF (NEGATIVE) 09/30/23 15:25 Ur Culture Indicated? No/not indicated 09/30/23 15:25 Review of Systems Constitutional: Weakness Eyes: No Symptoms Reported ENT: No Symptoms Reported Respiratory: No Symptoms Reported Cardiovascular: No Symptoms Reported Gastrointestinal: No Symptoms Reported Genitourinary: No Symptoms Reported Musculoskeletal: No Symptoms Reported Skin: No Symptoms Reported Neurological: No Symptoms Reported Physical Exam Vital Signs: Vital Signs Temperature 98.7 F Temperature 98 F Pulse Rate [Left Radial] 84 Pulse Rate [Left Radial] 74 Respiratory Rate 18 Respiratory Rate 18 Blood Pressure [Left Arm] 128/85 Blood Pressure [Left Arm] 123/62 O2 Sat by Pulse Oximetry 98 O2 Sat by Pulse Oximetry 96 Oriented: Normal Eyes: Normal Ear: Normal Nose: Normal Throat: Normal Respiratory: Clear Throughout Cardiovascular: Normal : Normal Auscultation: Bowel Sounds: Normal Palpation: Normal Tenderness: Normal Skin: Normal Musculoskeletal: Instability Psychiatric: Normal Mood Description: Calm and Appropriate Affect: Normal Speech Pattern: Clear and Appropriate Assessment/Plan (1) Dehydration: Narrative Support Text: Continue IV fluids as gentle hydration. Status: Acute (2) Weakness: Narrative Support Text: Order physical therapy Status: Acute (3) Fall: Status: None Review H&P Reviewed: Yes Patient was examined?: Yes
[2023-10-02] MEDS: NS 1,000 ML IV 1,000 ML IV SCH (01:36)
[2023-10-02] MEDS ORDERED: TYLENOL 325 MG TAB PO PRN (02:59)
[2023-10-02] MEDS: ROXICODONE TAB 5 MG PO PRN ×2 (05:34→19:56)
[2023-10-02 06:29] LABS: BASOPHILS % (AUTO) 0.4 % (0.2-1.0); EOSINOPHILS % (AUTO) 1.1 % (0.9-2.9); HEMATOCRIT 32.9 % (42.0-54.0); HEMOGLOBIN 10.8 g/dL (13.5-18.0); LYMPHOCYTES # (AUTO) 1.1 X10^3/uL (1.3-2.9); LYMPHOCYTES % (AUTO) 26.4 % (21.0-51.0); MEAN CORPUSCULAR HEMOGLOBIN 29.2 pg (27.0-34.0); MEAN CORPUSCULAR HGB CONC 32.9 g/dL (33.0-35.0); MEAN CORPUSCULAR VOLUME 88.8 fL (80.0-100.0); MEAN PLATELET VOLUME 9.6 fL (7.4-11.0); MONOCYTES # (AUTO) 0.5 x10^3/uL (0.3-0.8); MONOCYTES % (AUTO) 11.3 % (0.0-13.0); NEUTROPHILS # (AUTO) 2.5 x10^3/uL (2.2-4.8); NEUTROPHILS % (AUTO) 60.8 % (42.0-75.0); PLATELET COUNT 144 X10^3/uL (150.0-450.0)
[2023-10-02 06:42] LABS: ALANINE AMINOTRANSFERASE 126 Units/L (12-78); ALBUMIN 2.7 g/dL (3.4-5.0); ALKALINE PHOSPHATASE 53 Units/L (46-116); ASPARTATE AMINO TRANSFERASE 121 Units/L (15-37); BLOOD UREA NITROGEN 16 mg/dL (7-18); CALCIUM 8.9 mg/dL (8.5-10.1); CARBON DIOXIDE 27.3 mmol/L (21-32); CHLORIDE 106 mmol/L (98-107); COR CA(FOR HYPOALB) 9.9 mg/dL (8.5-10.1); CREATININE 1.43 mg/dL (0.70-1.30); GLUCOSE 68 mg/dL (65-99); POTASSIUM 3.3 mmol/L (3.5-5.1); SODIUM 143 mmol/L (136-145); TOTAL PROTEIN 7.2 g/dL (6.4-8.2); eGFR NON BLACK RACES 52 (>60)
[2023-10-02 07:04] LABS: MAGNESIUM 1.8 mg/dL (2.0-2.9)
[2023-10-02] MEDS ORDERED: CONSULT PHARMACY - POTASSIUM & MAGNESIUM XX SCH (09:00)
[2023-10-02] MEDS: ELIQUIS PO SCH ×2 (09:31→21:13)
[2023-10-02] MEDS: PEPCID TAB 20 MG PO SCH ×2 (09:31→21:13)
[2023-10-02] MEDS: NS + KCL 20 MEQ/L 1,000 ML with MAGNESIUM SULFATE 50% INJ VIAL 1 G IV SCH ×4 (09:32→22:06)
[2023-10-02] MEDS: NYSTATIN POWDER TOP SCH ×2 (09:44→21:25)
--- NOTE | 2023-10-02 12:36 | PCM.PROG ---
Progress Note Progress Note for Day of Date of Exam: 10/01/23 Subjective Subjective: Patient is a 68-year-old male with past medical history of atrial fibrillation, hypertension, legally blind, admitted for dehydration, fall, and generalized weakness. This morning he is resting in bed. No acute events overnight. Labs/imaging: WBC 4.5, hemoglobin 11.4, platelets 155, sodium 145, potassium 3.7, creatinine 1.71, glucose 63. Home medications have been resumed. Will continue IV fluid hydration for dehydration. Physical therapy. Otherwise, continue with current treatment plan. Continue closely monitor and follow-up labs in the morning. Past Medical Family Social History Allergies: Allergies codeine Allergy (Verified 09/23/23 10:09) Review of Systems ROS changes noted: see HPI Vital Signs and I&O's Vital Signs: Vital Signs Respiratory Rate 18 Respiratory Rate 20 Intake and Output: Intake & Output 09/29/23 09/30/23 10/01/23 10/02/23 23:59 23:59 23:59 23:59 Intake Total 120 / 120 2366 / 2366 585 / 585 Output Total 400 / 400 400 / 400 Balance 120 / 120 1966 / 1966 185 / 185 Physical Exam Oriented: Normal Eyes: Normal Ear: Normal Nose: Normal Throat: Normal Respiratory: Normal Cardiovascular: Normal : Normal Auscultation: Bowel Sounds: Normal Tenderness: Normal Skin: Normal Musculoskeletal: Instability Psychiatric: Normal Mood Description: Calm and Appropriate Affect: Normal Speech Pattern: Clear and Appropriate Laboratory and Diagnostics 10/02/23 05:15 10/02/23 05:15 Labs: Laboratory WBC 4.0 X10^3/uL (3.6-10.0) 10/02/23 05:15 RBC 3.70 X10^6/uL (4.7-6.0) L 10/02/23 05:15 Hgb 10.8 g/dL (13.5-18.0) L 10/02/23 05:15 Hct 32.9 % (42.0-54.0) L 10/02/23 05:15 MCV 88.8 fL (80.0-100.0) 10/02/23 05:15 MCH 29.2 pg (27.0-34.0) 10/02/23 05:15 MCHC 32.9 g/dL (33.0-35.0) L 10/02/23 05:15 RDW 15.0 % (11.6-16.5) 10/02/23 05:15 Plt Count 144 X10^3/uL (150.0-450.0) L 10/02/23 05:15 MPV 9.6 fL (7.4-11.0) 10/02/23 05:15 Neut % (Auto) 60.8 % (42.0-75.0) 10/02/23 05:15 Lymph % (Auto) 26.4 % (21.0-51.0) 10/02/23 05:15 [place] % (Auto) 11.3 % (0.0-13.0) 10/02/23 05:15 Eos % (Auto) 1.1 % (0.9-2.9) 10/02/23 05:15 Baso % (Auto) 0.4 % (0.2-1.0) 10/02/23 05:15 Neut # (Auto) 2.5 x10^3/uL (2.2-4.8) 10/02/23 05:15 Lymph # (Auto) 1.1 X10^3/uL (1.3-2.9) L 10/02/23 05:15 [place] # (Auto) 0.5 x10^3/uL (0.3-0.8) 10/02/23 05:15 Eos # (Auto) 0.0 x10^3/uL (0.0-0.2) 10/02/23 05:15 Baso # (Auto) 0.0 X10^3/uL (0.0-0.1) 10/02/23 05:15 Absolute Nucleated RBC 0.2 /100WBC 10/02/23 05:15 Sodium 143 mmol/L (136-145) 10/02/23 05:15 Corrected Sodium TNP 10/02/23 05:15 Potassium 3.3 mmol/L (3.5-5.1) L 10/02/23 05:15 Chloride 106 mmol/L (98-107) 10/02/23 05:15 Carbon Dioxide 27.3 mmol/L (21-32) 10/02/23 05:15 BUN 16 mg/dL (7-18) 10/02/23 05:15 Creatinine 1.43 mg/dL (0.70-1.30) H 10/02/23 05:15 Est GFR (MDRD) Af Amer > 60 (>60) 10/02/23 05:15 Est GFR (MDRD) Non-Af 52 (>60) L 10/02/23 05:15 Glucose 68 mg/dL (65-99) 10/02/23 05:15 Calcium 8.9 mg/dL (8.5-10.1) 10/02/23 05:15 Corrected Calcium 9.9 mg/dL (8.5-10.1) 10/02/23 05:15 Magnesium 1.8 mg/dL (2.0-2.9) L 10/02/23 05:15 Total Bilirubin 0.30 mg/dL (0.2-1.0) 10/02/23 05:15 AST 121 Units/L (15-37) H 10/02/23 05:15 ALT 126 Units/L (12-78) H 10/02/23 05:15 Alkaline Phosphatase 53 Units/L (46-116) 10/02/23 05:15 Creatine Kinase 160 Units/L (39-308) 09/30/23 13:04 Troponin I High Sens 44.7 ng/L (4.0-60.0) 09/30/23 13:04 Total Protein 7.2 g/dL (6.4-8.2) 10/02/23 05:15 Albumin 2.7 g/dL (3.4-5.0) L 10/02/23 05:15 Globulin 4.5 g/dL (2.5-4.5) 10/02/23 05:15 Albumin/Globulin Ratio 0.6 Ratio (1.1-2.1) L 10/02/23 05:15 Specimen Type Clean catch urine 09/30/23 15:25 Urine Color Yellow (YELLOW) 09/30/23 15:25 Urine Appearance Clear (CLEAR) 09/30/23 15:25 Urine pH 6.0 (5.0 - 8.0) 09/30/23 15:25 Ur Specific [place] 1.025 (1.000-1.030) 09/30/23 15:25 Urine Protein 1+ (NEGATIVE) 09/30/23 15:25 Urine Glucose (UA) Negative (NEGATIVE) 09/30/23 15:25 Urine Ketones 2+ (NEGATIVE) 09/30/23 15:25 Urine Blood Negative (NEGATIVE) 09/30/23 15:25 Urine Nitrite Negative (NEGATIVE) 09/30/23 15:25 Urine Bilirubin Negative (NEGATIVE) 09/30/23 15:25 Urine Urobilinogen Normal (NORMAL) 09/30/23 15:25 Ur Leukocyte Esterase Negative (NEGATIVE) 09/30/23 15:25 Urine RBC None seen /HPF (0-3) 09/30/23 15:25 Urine WBC 0-2 /HPF (0-5) 09/30/23 15:25 Ur Squamous Epith Cells Rare /HPF (NEGATIVE) 09/30/23 15:25 Urine Bacteria Negative /HPF (NEGATIVE) 09/30/23 15:25 Hyaline Casts Rare /LPF (NEGATIVE) 09/30/23 15:25 Urine Mucus Few /HPF (NEGATIVE) 09/30/23 15:25 Ur Culture Indicated? No/not indicated 09/30/23 15:25 Plan (1) Dehydration: Status: Acute (2) Weakness: Status: Acute (3) Fall: Status: None
[2023-10-02] MEDS: NORVASC TAB 10 MG PO SCH (13:20)
--- NOTE | 2023-10-02 13:22 | PCM.PROG ---
Progress Note Progress Note for Day of Date of Exam: 10/02/23 Subjective Subjective: Patient is a 68-year-old male with past medical history of atrial fibrillation, hypertension, legally blind, admitted for dehydration, fall, and generalized weakness. This morning he is alert and oriented. Eating breakfast. No acute events overnight. Continues to remain weak in his lower extremities. Labs/imaging: WBC 4.0, hemoglobin 10.8, platelets 144, sodium 143, potassium 3.3, creatinine 1.43, glucose 68. Home medications have been resumed. Will continue IV fluid hydration for dehydration. Physical therapy. Case management to work on possible rehab placement. Otherwise, continue with current treatment plan. Continue closely monitor and follow-up labs in the morning. Past Medical Family Social History Allergies: Allergies codeine Allergy (Verified 09/23/23 10:09) Review of Systems ROS changes noted: see HPI Vital Signs and I&O's Vital Signs: Vital Signs Respiratory Rate 18 Respiratory Rate 20 Intake and Output: Intake & Output 09/29/23 09/30/23 10/01/23 10/02/23 23:59 23:59 23:59 23:59 Intake Total 120 / 120 2366 / 2366 585 / 585 Output Total 400 / 400 400 / 400 Balance 120 / 120 1965 / 1966 185 / 185 Physical Exam Oriented: Normal Eyes: Normal Ear: Normal Nose: Normal Throat: Normal Respiratory: Normal Cardiovascular: Normal : Normal Auscultation: Bowel Sounds: Normal Tenderness: Normal Skin: Normal Musculoskeletal: Instability Psychiatric: Normal Mood Description: Calm and Appropriate Affect: Normal Speech Pattern: Clear and Appropriate Laboratory and Diagnostics 10/02/23 05:15 10/02/23 05:15 Labs: Laboratory WBC 4.0 X10^3/uL (3.6-10.0) 10/02/23 05:15 RBC 3.70 X10^6/uL (4.7-6.0) L 10/02/23 05:15 Hgb 10.8 g/dL (13.5-18.0) L 10/02/23 05:15 Hct 32.9 % (42.0-54.0) L 10/02/23 05:15 MCV 88.8 fL (80.0-100.0) 10/02/23 05:15 MCH 29.2 pg (27.0-34.0) 10/02/23 05:15 MCHC 32.9 g/dL (33.0-35.0) L 10/02/23 05:15 RDW 15.0 % (11.6-16.5) 10/02/23 05:15 Plt Count 144 X10^3/uL (150.0-450.0) L 10/02/23 05:15 MPV 9.6 fL (7.4-11.0) 10/02/23 05:15 Neut % (Auto) 60.8 % (42.0-75.0) 10/02/23 05:15 Lymph % (Auto) 26.4 % (21.0-51.0) 10/02/23 05:15 [place] % (Auto) 11.3 % (0.0-13.0) 10/02/23 05:15 Eos % (Auto) 1.1 % (0.9-2.9) 10/02/23 05:15 Baso % (Auto) 0.4 % (0.2-1.0) 10/02/23 05:15 Neut # (Auto) 2.5 x10^3/uL (2.2-4.8) 10/02/23 05:15 Lymph # (Auto) 1.1 X10^3/uL (1.3-2.9) L 10/02/23 05:15 [place] # (Auto) 0.5 x10^3/uL (0.3-0.8) 10/02/23 05:15 Eos # (Auto) 0.0 x10^3/uL (0.0-0.2) 10/02/23 05:15 Baso # (Auto) 0.0 X10^3/uL (0.0-0.1) 10/02/23 05:15 Absolute Nucleated RBC 0.2 /100WBC 10/02/23 05:15 Sodium 143 mmol/L (136-145) 10/02/23 05:15 Corrected Sodium TNP 10/02/23 05:15 Potassium 3.3 mmol/L (3.5-5.1) L 10/02/23 05:15 Chloride 106 mmol/L (98-107) 10/02/23 05:15 Carbon Dioxide 27.3 mmol/L (21-32) 10/02/23 05:15 BUN 16 mg/dL (7-18) 10/02/23 05:15 Creatinine 1.43 mg/dL (0.70-1.30) H 10/02/23 05:15 Est GFR (MDRD) Af Amer > 60 (>60) 10/02/23 05:15 Est GFR (MDRD) Non-Af 52 (>60) L 10/02/23 05:15 Glucose 68 mg/dL (65-99) 10/02/23 05:15 Calcium 8.9 mg/dL (8.5-10.1) 10/02/23 05:15 Corrected Calcium 9.9 mg/dL (8.5-10.1) 10/02/23 05:15 Magnesium 1.8 mg/dL (2.0-2.9) L 10/02/23 05:15 Total Bilirubin 0.30 mg/dL (0.2-1.0) 10/02/23 05:15 AST 121 Units/L (15-37) H 10/02/23 05:15 ALT 126 Units/L (12-78) H 10/02/23 05:15 Alkaline Phosphatase 53 Units/L (46-116) 10/02/23 05:15 Creatine Kinase 160 Units/L (39-308) 09/30/23 13:04 Troponin I High Sens 44.7 ng/L (4.0-60.0) 09/30/23 13:04 Total Protein 7.2 g/dL (6.4-8.2) 10/02/23 05:15 Albumin 2.7 g/dL (3.4-5.0) L 10/02/23 05:15 Globulin 4.5 g/dL (2.5-4.5) 10/02/23 05:15 Albumin/Globulin Ratio 0.6 Ratio (1.1-2.1) L 10/02/23 05:15 Specimen Type Clean catch urine 09/30/23 15:25 Urine Color Yellow (YELLOW) 09/30/23 15:25 Urine Appearance Clear (CLEAR) 09/30/23 15:25 Urine pH 6.0 (5.0 - 8.0) 09/30/23 15:25 Ur Specific [place] 1.025 (1.000-1.030) 09/30/23 15:25 Urine Protein 1+ (NEGATIVE) 09/30/23 15:25 Urine Glucose (UA) Negative (NEGATIVE) 09/30/23 15:25 Urine Ketones 2+ (NEGATIVE) 09/30/23 15:25 Urine Blood Negative (NEGATIVE) 09/30/23 15:25 Urine Nitrite Negative (NEGATIVE) 09/30/23 15:25 Urine Bilirubin Negative (NEGATIVE) 09/30/23 15:25 Urine Urobilinogen Normal (NORMAL) 09/30/23 15:25 Ur Leukocyte Esterase Negative (NEGATIVE) 09/30/23 15:25 Urine RBC None seen /HPF (0-3) 09/30/23 15:25 Urine WBC 0-2 /HPF (0-5) 09/30/23 15:25 Ur Squamous Epith Cells Rare /HPF (NEGATIVE) 09/30/23 15:25 Urine Bacteria Negative /HPF (NEGATIVE) 09/30/23 15:25 Hyaline Casts Rare /LPF (NEGATIVE) 09/30/23 15:25 Urine Mucus Few /HPF (NEGATIVE) 09/30/23 15:25 Ur Culture Indicated? No/not indicated 09/30/23 15:25 Plan (1) Dehydration: Status: Acute (2) Weakness: Status: Acute (3) Fall: Status: None
[2023-10-02 14:22] LABS: GIARDIA LAMBLIA ANTIGEN NEGATIVE (NEGATIVE)
[2023-10-02 14:23] LABS: CRYPTOSPORIDIUM PARVUM ANTIGEN NEGATIVE (NEGATIVE)
[2023-10-02] MEDS: ALPHAGAN 0.2% OPHTH SOLN RIGHTEYE SCH ×2 (15:56→21:25)
[2023-10-02] MEDS ORDERED: IMODIUM CAP 2 MG PO PRN (17:18)
[2023-10-02] MEDS ORDERED: ZOCOR TAB 20 MG PO SCH (21:00)
[2023-10-02] MEDS ORDERED: XALATAN LEFTEYE SCH (21:00)
[2023-10-02] MEDS ORDERED: ZOLOFT PO SCH (21:00)
[2023-10-02] MEDS ORDERED: DESYREL PO SCH (21:00)
[2023-10-02] MEDS ORDERED: ZOLOFT ONE (21:10)
[2023-10-02] MEDS: RESTORIL CAP 15 MG PO PRN (21:13)
[2023-10-02] MEDS: COSOPT OPTH RIGHTEYE SCH (21:24)
[2023-10-03 04:58] VITALS: RESP 20
[2023-10-03] MEDS: ALPHAGAN 0.2% OPHTH SOLN RIGHTEYE SCH (05:03)
[2023-10-03 06:31] LABS: BASOPHILS % (AUTO) 0.4 % (0.2-1.0); EOSINOPHILS % (AUTO) 0.9 % (0.9-2.9); HEMATOCRIT 33.7 % (42.0-54.0); LYMPHOCYTES # (AUTO) 0.7 X10^3/uL (1.3-2.9); LYMPHOCYTES % (AUTO) 18.9 % (21.0-51.0); MEAN CORPUSCULAR HEMOGLOBIN 28.9 pg (27.0-34.0); MEAN CORPUSCULAR HGB CONC 32.5 g/dL (33.0-35.0); MEAN CORPUSCULAR VOLUME 88.9 fL (80.0-100.0); MEAN PLATELET VOLUME 9.6 fL (7.4-11.0); MONOCYTES # (AUTO) 0.5 x10^3/uL (0.3-0.8); NEUTROPHILS # (AUTO) 2.6 x10^3/uL (2.2-4.8); NEUTROPHILS % (AUTO) 67.8 % (42.0-75.0); PLATELET COUNT 134 X10^3/uL (150.0-450.0); RED BLOOD COUNT 3.79 X10^6/uL (4.7-6.0); RED CELL DISTRIBUTION WIDTH 14.7 % (11.6-16.5); WHITE BLOOD COUNT 3.9 X10^3/uL (3.6-10.0)
[2023-10-03 06:51] LABS: ALANINE AMINOTRANSFERASE 102 Units/L (12-78); ALBUMIN 2.5 g/dL (3.4-5.0); ALKALINE PHOSPHATASE 49 Units/L (46-116); ASPARTATE AMINO TRANSFERASE 84 Units/L (15-37); BLOOD UREA NITROGEN 9 mg/dL (7-18); CALCIUM 8.6 mg/dL (8.5-10.1); CARBON DIOXIDE 27.4 mmol/L (21-32); CHLORIDE 108 mmol/L (98-107); COR CA(FOR HYPOALB) 9.8 mg/dL (8.5-10.1); CREATININE 1.11 mg/dL (0.70-1.30); GLUCOSE 74 mg/dL (65-99); MAGNESIUM 1.7 mg/dL (2.0-2.9); POTASSIUM 3.5 mmol/L (3.5-5.1); SODIUM 144 mmol/L (136-145); TOTAL PROTEIN 6.7 g/dL (6.4-8.2); eGFR NON BLACK RACES > 60 (>60)
[2023-10-03] MEDS ORDERED: CONSULT PHARMACY - POTASSIUM & MAGNESIUM XX SCH (09:00)
[2023-10-03] MEDS: ELIQUIS PO SCH (09:07)
[2023-10-03] MEDS: PEPCID TAB 20 MG PO SCH (09:08)
[2023-10-03] MEDS: COSOPT OPTH RIGHTEYE SCH (09:08)
[2023-10-03] MEDS: NORVASC TAB 10 MG PO SCH (09:08)
[2023-10-03] MEDS: MAG-OX TAB PO SCH ×3 (09:08→10:56)
[2023-10-03] MEDS: NYSTATIN POWDER TOP SCH (09:09)
[2023-10-03] MEDS ORDERED: ZOFRAN INJ 4 MG VIAL IVP PRN (09:16)
[2023-10-03] MEDS ORDERED: ALPRAZOLAM ODT PO PRN (09:20)
[2023-10-03] MEDS: NS + KCL 20 MEQ/L 1,000 ML with MAGNESIUM SULFATE 50% INJ VIAL 1 G IV SCH ×2 (11:13)
[2023-10-03 12:15] VITALS: BP 138/68; PULSE 74; TEMP 98.3; O2SAT 95
== END 2023-10-03 13:50 ==
LOC: MED/SURG 12:13 → ER 12:13 → MED/SURG 19:40
PROVIDERS: ADMIT Family Medicine; ATTEND Family Medicine
DX: R26.89 Other abnormalities of gait and mobility; I10 Essential (primary) hypertension; H54.8 Legal blindness, as defined in USA; K21.9 Gastro-esophageal reflux disease without esophagitis; E86.0 Dehydration; W18.39XA Other fall on same level, initial encounter; R53.1 Weakness; R21 Rash and other nonspecific skin eruption; E78.5 Hyperlipidemia, unspecified